=== PATIENT | male | born 1960 | race Caucasian/White ===

== ENCOUNTER 2019-11-13 07:13 | Inpatient (IN) | payer MEDICAID ==
[~2019-11-13] VITALS: Ht 170.2 cm; Wt 75.2 kg
[2019-11-13] MEDS ORDERED: ACETAMINOPHEN/CODEINE#3 (300/30mg) TAB PO ONE (08:00)
[2019-11-13 09:41] LABS: Basophils # (auto) 0.1 uL; Basophils % (auto) 1.4 % (0.0-2.0); Eosinophils # (auto) 0.1 uL; Eosinophils % (auto) 0.8 % (0.0-7.0); Hematocrit 41.6 % (41.0-53.0); Hemoglobin 14.7 g/dL (13.5-17.5); Lymphocytes # (auto) 0.9 uL; Lymphocytes % (auto) 14.4 % (10.0-50.0); Mean Corpuscular Hemoglobin 33.4 pg (28.0-32.0); Mean Corpuscular Hgb Conc. 35.2 g/dL (32.0-36.0); Mean Corpuscular Volume 94.8 fL (80.0-100.0); Monocytes # (auto) 0.7 uL; Neutrophils # (auto) 4.7 uL; Neutrophils % (auto) 72.4 % (37.0-80.0); Nucleated Red Blood Cells % 0.1 %; Platelet Count (auto) 202 10^3/uL (140-450); Red Blood Cells 4.39 10^6/uL (4.5-5.90); Red Cell Distribution Width 13.4 % (11.8-14.3); White Blood Cell 6.5 10^3/uL (4.4-10.8)
[2019-11-13 10:04] LABS: Albumin 3.6 g/dL (3.4-5.0); Calcium 8.3 mg/dL (8.5-10.1); Potassium 3.2 mmol/L (3.5-5.1)
[2019-11-13 10:09] LABS: BUN/Creatinine Ratio 10.7; Bilirubin, Total 0.6 mg/dL (0.2-1.0); Total Protein 7.3 g/dL (6.4-8.2)
[2019-11-13 11:03] LABS: INR > 8.0 (0.9-1.15)
[2019-11-13] MEDS ORDERED: PHYTONADIONE (VIT K)10 MG/ML 1ML VIAL SUBCUT ONE ×2 (11:15→22:00)
[2019-11-13] MEDS ORDERED: MORPHINE SULF INJ 2 MG/ML SYRINGE 1ML IV PRN (12:30)
[2019-11-13] MEDS ORDERED: POTASSIUM CHL 20 Meq TABLET PO ONE (12:30)
[2019-11-13] MEDS ORDERED: NITROGLYCERIN 0.4 MG SL TAB SL PRN (12:30)
[2019-11-13] MEDS: ONDANSETRON HCL 4 MG/2 ML VIAL IV PRN ×3 (13:09→23:07)
[2019-11-13] MEDS: HYDROmorphone HCL 2 MG/ML VL IV PRN ×2 (13:09→23:07)
[2019-11-13 16:15] VITALS: BP 142/120
[2019-11-13] MEDS ORDERED: HYDROmorphone HCL 2 MG/ML VL IV ONE (16:15)
[2019-11-13 16:33] VITALS: BP 171/78
[2019-11-13 17:00] VITALS: BP 174/58
[2019-11-13 18:00] VITALS: BP 167/80
--- NOTE | 2019-11-13 18:00 | NUR ---
Telemetry admit from GIRISH FARLEY admitted to Telemetry unit. Patient oriented to Tori Heath, primary RN, unit, room, bed, and unit policies regarding patient care and visiting hours. Patient now on continuous telemetry monitoring, tele box #44 and telemetry reading on arrival to unit is sinus rhythm @ 67 bpm. IV to right forearm, 20 gauge, patent and saline locked. Patient placed on bedside oxygen, weighed by bedscale and encouraged to call if they need something. Medial scalp scab, open to air. All questions and concerns addressed, patient verbalized understanding.
[2019-11-13 19:19] LABS: Basophils # (auto) 0 uL; Basophils % (auto) 0.4 % (0.0-2.0); Eosinophils # (auto) 0 uL; Eosinophils % (auto) 0.4 % (0.0-7.0); Hematocrit 36.6 % (41.0-53.0); Hemoglobin 12.7 g/dL (13.5-17.5); Lymphocytes # (auto) 0.4 uL; Lymphocytes % (auto) 6.1 % (10.0-50.0); Mean Corpuscular Hemoglobin 33.4 pg (28.0-32.0); Mean Corpuscular Hgb Conc. 34.7 g/dL (32.0-36.0); Mean Corpuscular Volume 96.2 fL (80.0-100.0); Monocytes # (auto) 0.7 uL; Monocytes % (auto) 9.7 % (0.0-12.0); Neutrophils # (auto) 5.6 uL; Neutrophils % (auto) 83.4 % (37.0-80.0); Nucleated Red Blood Cells % 0.1 %; Platelet Count (auto) 183 10^3/uL (140-450); Red Blood Cells 3.81 10^6/uL (4.5-5.90); Red Cell Distribution Width 13.6 % (11.8-14.3); White Blood Cell 6.8 10^3/uL (4.4-10.8)
--- NOTE | 2019-11-13 19:26 | NUR ---
Care endorsed to MASHA Arroyo, night nurse.
[2019-11-13 19:32] LABS: INR 3.26 (0.9-1.15)
[2019-11-13] MEDS ORDERED: LABETALOL HCL 5 MG/ML 4ML SYRINGE IV PRN (20:00)
[2019-11-13 22:00] VITALS: BP 146/86
[2019-11-13] MEDS ORDERED: ATORVASTATIN 20 MG TAB PO SCH (22:00)
--- NOTE | 2019-11-13 23:46 | NUR ---
Patient admission: Coumadin toxicity Addendum: 11/13/19 at 2347 by JIMBO LONGO RN Amended: Links added.
[2019-11-14] VITALS (7 sets, daily range): BP systolic 115–179; BP diastolic 61–86
[2019-11-14] MEDS: HYDROmorphone HCL 2 MG/ML VL IV PRN ×2 (03:44→08:15)
[2019-11-14] MEDS: ONDANSETRON HCL 4 MG/2 ML VIAL IV PRN ×2 (03:45→08:14)
[2019-11-14 05:34] LABS: Basophils # (auto) 0.1 uL; Basophils % (auto) 0.8 % (0.0-2.0); Eosinophils # (auto) 0.1 uL; Eosinophils % (auto) 0.8 % (0.0-7.0); Hematocrit 35.4 % (41.0-53.0); Hemoglobin 12.4 g/dL (13.5-17.5); Lymphocytes # (auto) 0.8 uL; Lymphocytes % (auto) 10.6 % (10.0-50.0); Mean Corpuscular Hemoglobin 33.7 pg (28.0-32.0); Mean Corpuscular Hgb Conc. 35.2 g/dL (32.0-36.0); Mean Corpuscular Volume 95.7 fL (80.0-100.0); Monocytes # (auto) 0.9 uL; Monocytes % (auto) 12.4 % (0.0-12.0); Neutrophils # (auto) 5.5 uL; Neutrophils % (auto) 75.4 % (37.0-80.0); Platelet Count (auto) 191 10^3/uL (140-450); Red Cell Distribution Width 13.5 % (11.8-14.3); White Blood Cell 7.2 10^3/uL (4.4-10.8)
[2019-11-14 05:36] LABS: INR 1.84 (0.9-1.15); Partial Thromboplastin Time 34.9 sec (23.64-32.05)
[2019-11-14 05:50] LABS: Albumin 3.4 g/dL (3.4-5.0); Potassium 3.5 mmol/L (3.5-5.1)
[2019-11-14 05:54] LABS: BUN/Creatinine Ratio 10.6; Total Protein 6.9 g/dL (6.4-8.2)
[2019-11-14] MEDS: AMIODARONE HCL 200 MG TAB PO SCH (10:20)
[2019-11-14] MEDS: PANTOPRAZOLE 40 MG TAB PO SCH (10:20)
[2019-11-14] MEDS ORDERED: HYDROmorphone HCL 2 MG/ML VL IV PRN ×3 (10:30→17:30)
[2019-11-14] MEDS ORDERED: LABETALOL HCL 5 MG/ML 4ML SYRINGE IV PRN (10:30)
[2019-11-14] MEDS: SODIUM CHLORIDE 0.9% 1,000 ML IV SCH ×2 (10:55→21:35)
[2019-11-14 11:07] LABS: Urine WBC None Seen /hpf (0 - 3)
[2019-11-14 11:28] LABS: Urine Bacteria NONE SEEN /hpf (None Seen); Urine Blood Negative /uL (Negative); Urine Mucus FEW (None Seen); Urine Specific Gravity 1.024 (1.001-1.035)
[2019-11-14] MEDS ORDERED: fentaNYL CITRATE 100 MCG/2 ML VL IV ONE ×2 (14:45→15:00)
--- NOTE | 2019-11-14 14:45 | NUR ---
LEFT THIGH DRAINAGE UNDER ULTRASOUND PT ARRIVED VIS W/C AND PLACED ON U.S. TABLE AND ATTCHED TO BEDSIDE MONITORS.
--- NOTE | 2019-11-14 15:36 | NUR ---
LEFT THIGH DRAINAGE UNDER ULTRASOUND. APPROXIMATELY 25CC OF BLODDY DRAINAGE RETURNED FROM THE LEFT THIGH HEMATOMA. PT TOLERATED PROCEDURE VERY WELL. REPORT GIVEN TO PATIENT CARE NURSE.
--- NOTE | 2019-11-14 17:11 | NUR ---
Procedure/Off unit Patient was taken down in bed for procedure/surgery.
[2019-11-14] MEDS ORDERED: ONDANSETRON HCL 4 MG/2 ML VIAL IV PRN (17:30)
[2019-11-14] MEDS ORDERED: NALOXONE HCL 0.4 MG/ML VIAL IV PRN (17:30)
[2019-11-14] MEDS ORDERED: hydrALAZINE HCL 20 MG/ML VL IV PRN (17:30)
[2019-11-14] MEDS ORDERED: METOCLOPRAMIDE HCL 5MG/ml INJ 2ml VIAL ONE (17:34)
[2019-11-14] MEDS ORDERED: MIDAZOLAM HCL 1MG/1ML-2 ML VIAL ONE (17:34)
[2019-11-14] MEDS ORDERED: LIDOCAINE 1% (LOCAL ANESTH.) PF 5ml SDV ONE (17:37)
[2019-11-14] MEDS ORDERED: ETOMIDATE (2MG/ML) 20ML VIAL IV ONE (17:37)
[2019-11-14] MEDS ORDERED: LIDOCAINE W/ EPINEPHRINE 1% 20ML VIAL ONE (17:41)
[2019-11-14] MEDS ORDERED: fentaNYL CITRATE 100 MCG/2 ML VL ONE (17:43)
[2019-11-14] MEDS ORDERED: ceFAZolin 1GM VL ONE (17:48)
[2019-11-14] MEDS ORDERED: BUPIVACAINE/DEXTROSE MPF 0.75% 2 ML AMP IT ONE (17:48)
[2019-11-14] MEDS ORDERED: STERILE WATER 10 ML ONE (17:52)
[2019-11-14] MEDS ORDERED: ePHEDrine SULFATE 50 MG/ML AMP ONE (17:52)
[2019-11-14] MEDS ORDERED: ROCURONIUM 10MG/ML 10ML VIAL IV ONE (18:04)
--- NOTE | 2019-11-14 20:00 | NUR ---
Opening Shift Note Assumed care of patient, awake and alert x4. No S/S of distress/SOB on room air. Denies pain at this time. Instructed on POC and to call for assist PRN, will continue to monitor for changes Q1hr and PRN.
--- NOTE | 2019-11-14 21:33 | NUR ---
IV removal IV DC'd with clean sterile technique, catheter fully intact. Pressure dressing applied to site. Patient tolerated well. IV insertion IV access obtained, via clean sterile technique by inserting 20 gauge catheter at left FA after 1 attempts. IV secured properly. No trauma to site. Patient tolerated well.
[2019-11-14] MEDS: ceFAZolin 1GM/50ML 50 ML IV SCH (21:36)
[2019-11-15] MEDS: HYDROcodone-ACET 5/325MG TAB PO PRN ×3 (02:27→18:57)
[2019-11-15 05:00] VITALS: BP 149/78
[2019-11-15] MEDS: ceFAZolin 1GM/50ML 50 ML IV SCH ×2 (05:46→14:53)
[2019-11-15 05:50] LABS: Basophils # (auto) 0.1 uL; Eosinophils # (auto) 0.3 uL; Hematocrit 31.4 % (41.0-53.0); Hemoglobin 11.1 g/dL (13.5-17.5); Mean Corpuscular Hgb Conc. 35.4 g/dL (32.0-36.0); Monocytes # (auto) 0.8 uL; Neutrophils # (auto) 4.1 uL
[2019-11-15 05:52] LABS: Basophils % (auto) 1.1 % (0.0-2.0); Lymphocytes # (auto) 1.1 uL; Lymphocytes % (auto) 17.5 % (10.0-50.0); Mean Corpuscular Hemoglobin 33.9 pg (28.0-32.0); Mean Corpuscular Volume 95.8 fL (80.0-100.0); Monocytes % (auto) 13.4 % (0.0-12.0); Platelet Count (auto) 176 10^3/uL (140-450); Red Blood Cells 3.28 10^6/uL (4.5-5.90); Red Cell Distribution Width 13.2 % (11.8-14.3); White Blood Cell 6.3 10^3/uL (4.4-10.8)
[2019-11-15 06:11] LABS: Potassium 3.5 mmol/L (3.5-5.1)
[2019-11-15 06:26] LABS: BUN/Creatinine Ratio 11.1
[2019-11-15] MEDS: SODIUM CHLORIDE 0.9% 1,000 ML IV SCH ×2 (07:56→16:26)
[2019-11-15 09:00] VITALS: BP 136/66
[2019-11-15] MEDS: AMIODARONE HCL 200 MG TAB PO SCH (09:27)
[2019-11-15] MEDS: PANTOPRAZOLE 40 MG TAB PO SCH (09:28)
[2019-11-15 11:55] LABS: Hepatitis A Ab IgM Negative; Hepatitis B Core IgM Negative; Hepatitis B Surface Antigen Negative (Negative)
[2019-11-15 11:58] LABS: Hepatitis C Antibody Positive (Negative)
[2019-11-15] MEDS: HEPARIN DRIP/D5W 100UNITS/ML 250 ML IV SCH (12:34)
--- NOTE | 2019-11-15 12:40 | NUR ---
Heparin Patient was started on Heparin drip running at 9 mL/hour per pharmacy. He was informed to notify the nurse if any bleeding is noted or large bruises. Will monitor patient closely.
[2019-11-15 13:00] VITALS: BP 135/64
[2019-11-15] MEDS ORDERED: SUCCINYLCHOLINE CHLORIDE 20 MG/ML 10ML VIAL IV ONE (13:39)
[2019-11-15 17:00] VITALS: BP 156/71
[2019-11-15 18:34] LABS: INR 1.04 (0.9-1.15); Partial Thromboplastin Time 28.5 sec (23.64-32.05)
--- NOTE | 2019-11-15 18:55 | NUR ---
Heparin change APTT was 28.5. Heparin was increased by 3. Changed from 9 mL/hour to 12 mL/hour. No sign of bleeding at this time.
--- NOTE | 2019-11-15 19:20 | NUR ---
OPENING NOTE ASSUMED CARE OF PT. NO S/S OF SOB/DISTRESS NOTED. DENIES ANY PAIN. SAFETY PRECAUTIONS IN PLACE. BED SET TO LOWEST POSITION/LOCKED. BEDSIDE RAILS UP X2. CALL LIGHT WITHIN REACH. INSTRUCTED PATIENT TO CALL FOR ASSISTANCE. UPDATE ON POC. PT VERBALIZED UNDERSTANDING. WILL CONTINUE TO MONITOR Q1HR AND PRN.
[2019-11-15 20:13] LABS: Urine Bacteria NONE SEEN /hpf (None Seen); Urine Blood Negative /uL (Negative); Urine Mucus FEW (None Seen); Urine Specific Gravity 1.029 (1.001-1.035); Urine WBC 1 /hpf (0 - 3)
--- NOTE | 2019-11-15 20:20 | NUR ---
URINE URINE SAMPLE COLLECTED AND SENT TO LAB.
[2019-11-15 20:28] LABS: Alcohol, Urine < 3.0 mg/dL (0-5); Amphetamine Screen, Urine NEGATIVE (NEGATIVE); Barbiturate Scree,Urine NEGATIVE (NEGATIVE); Benzodiazephine Screen, Urine POSITIVE (NEGATIVE); Cannabinoid Screen, Urine POSITIVE (NEGATIVE); Cocaine Screen, Urine NEGATIVE (NEGATIVE); Opiate Scree,Urine POSITIVE (NEGATIVE); Phencyclidine Screen, Urine NEGATIVE (NEGATIVE)
[2019-11-15 22:00] VITALS: BP 136/66
[2019-11-16] MEDS: HYDROcodone-ACET 5/325MG TAB PO PRN ×5 (00:54→23:20)
[2019-11-16 01:29] LABS: INR 1.04 (0.9-1.15)
--- NOTE | 2019-11-16 01:41 | NUR ---
HEPARIN APTT 41.0, HEPARIN INCREASED BY 2ML PER PROTOCOL. NEW RATE 14ML/HR. NO SIGNS OF BLEEDING.
[2019-11-16] MEDS: SODIUM CHLORIDE 0.9% 1,000 ML IV SCH ×3 (02:17→20:09)
--- NOTE | 2019-11-16 03:10 | NUR ---
OPENING SHIFT NOTE Assumed care of patient from cook night RN. Patient is alert and oriented x4, no signs of distress noted. Patient was updated on the plan of care and verbalized understanding. Bed is locked, in the lowest position, side rails up x2 and call light is in reach. Patient was encouraged to call for assistance as needed.
[2019-11-16 05:00] VITALS: BP 136/71
[2019-11-16 06:00] LABS: Basophils # (auto) 0.1 uL; Basophils % (auto) 1.3 % (0.0-2.0); Eosinophils # (auto) 0.3 uL; Hematocrit 27.9 % (41.0-53.0); Lymphocytes # (auto) 0.8 uL; Mean Corpuscular Hgb Conc. 35.9 g/dL (32.0-36.0); Monocytes # (auto) 0.6 uL; Platelet Count (auto) 163 10^3/uL (140-450); Red Blood Cells 2.89 10^6/uL (4.5-5.90); White Blood Cell 4.6 10^3/uL (4.4-10.8)
[2019-11-16 06:03] LABS: Eosinophils % (auto) 6.7 % (0.0-7.0); Lymphocytes % (auto) 17.6 % (10.0-50.0); Mean Corpuscular Hemoglobin 34.6 pg (28.0-32.0); Mean Corpuscular Volume 96.5 fL (80.0-100.0); Neutrophils # (auto) 2.7 uL; Neutrophils % (auto) 60.4 % (37.0-80.0); Red Cell Distribution Width 13.3 % (11.8-14.3)
[2019-11-16 06:21] LABS: Calcium 7.9 mg/dL (8.5-10.1); Potassium 3.5 mmol/L (3.5-5.1)
[2019-11-16 06:25] LABS: BUN/Creatinine Ratio 16.2
[2019-11-16 06:31] LABS: INR 1.02 (0.9-1.15); Partial Thromboplastin Time 47.1 sec (23.64-32.05)
--- NOTE | 2019-11-16 06:54 | NUR ---
HEPARIN APTT 47.1, HEPARIN INCREASED BY 2ML PER PROTOCOL. NEW RATE 16ML/HR. NO SIGNS OF BLEEDING.
--- NOTE | 2019-11-16 07:03 | NUR ---
CLOSING SHIFT NOTE Care endorsed to MASHA Ceja.
--- NOTE | 2019-11-16 07:30 | NUR ---
Opening Shift Note Assumed care of patient, awake and alert x 4. Patient reported discomfort from incision but no SOB or other distress noted. Bed is in lowest, locked position, bed rails up x 2 and call light within reach. Instructed on POC and to call for assist PRN, will continue to monitor for changes Q1hr and PRN. Signed: 11/16/19 at 1301 by SN DESTINY <Co-Signature Required> Co-Signed: 11/16/19 at 1301 by Brenna Dela Cruz RN RN
[2019-11-16 09:00] VITALS: BP 143/73
[2019-11-16] MEDS: PANTOPRAZOLE 40 MG TAB PO SCH (09:48)
[2019-11-16] MEDS: AMIODARONE HCL 200 MG TAB PO SCH (09:48)
[2019-11-16 12:30] VITALS: BP 135/69
--- NOTE | 2019-11-16 13:05 | NUR ---
DR WILLAMS AT BEDSIDE DISCUSSED POC AND PAIN MANAGEMENT WITH PATIENT Signed: 11/16/19 at 1309 by SN DESTINY <Co-Signature Required> Co-Signed: 11/16/19 at 1309 by Brenna Dela Cruz RN RN
[2019-11-16 14:00] LABS: INR 1.01 (0.9-1.15); Partial Thromboplastin Time 57.9 sec (23.64-32.05)
[2019-11-16] MEDS: HEPARIN DRIP/D5W 100UNITS/ML 250 ML IV SCH (14:12)
--- NOTE | 2019-11-16 15:12 | NUR ---
assessment Patient is a 59 year old male who is alert and oriented. Patients cognitive abilities are intact. Prior to admission patient lived home with family and functioned independently. Patient informed me he is able to care for his own ADLs. Per patient he will return home to his prior living arrangements post discharge and family will transport him home. Patients PCP is Dr Verdin. Patient informed me he was working in his yard building a fence and hit his leg with an ogger. Patient may need DME and home health on discharge. Patients post discharge needs to be determined. I informed patient he has a right to speak to a social science teacher regarding all care. I informed patient he has a right to participate in any and all discharge planning. Patient does not have a POA and advanced directive. I have offered patient information on POA and advanced directives. I informed the patient the advantages and benefits of having an Advanced Directive. Patient verbalized understanding and agreed to discharge plan. Addendum: 11/16/19 at 1513 by Bree KAUR Amended: Links added.
[2019-11-16] MEDS ORDERED: WARFARIN SODIUM 5 MG TAB PO ONE (17:00)
[2019-11-16 17:15] VITALS: BP 137/74
--- NOTE | 2019-11-16 19:19 | NUR ---
CLOSING SHIFT NOTE ENDORSED CARE TO RESTAURANT ASSISTANT MANAGER MASHA JUAREZ. PATIENT HAS NO S/S OF DISTRESS/SOB OR PAIN AT THIS TIME.
--- NOTE | 2019-11-16 19:30 | NUR ---
Opening Shift Note Assumed care of patient, awake and alert x 4. Patient reported discomfort from incision but no SOB or other distress noted. Bed is in lowest, locked position, bed rails up x 2 and call light within reach. Instructed on POC and to call for assist PRN. Heparin drip currently running at 16 ml/hour.
[2019-11-16 21:53] VITALS: BP 120/63
[2019-11-17] VITALS (7 sets, daily range): BP systolic 129–150; BP diastolic 66–81
[2019-11-17 01:20] LABS: Partial Thromboplastin Time 84.8 sec (23.64-32.05)
--- NOTE | 2019-11-17 01:21 | NUR ---
Critical lab: Patient had a critical lab value of 84.8 aptt. According to Heparin protocol scale will decrease heparin drip by 2 ml/hr. Verified with MASHA Choudhury.
--- NOTE | 2019-11-17 01:24 | NUR ---
Heparin: Patient now running 14 ml/hr heparin drip per protocol scale. Patient is resting in bed with breaths even and unlabored. No S/S of distress SOB noted.
[2019-11-17] MEDS: HYDROcodone-ACET 5/325MG TAB PO PRN ×3 (05:53→21:08)
[2019-11-17 06:50] LABS: Basophils # (auto) 0 uL; Basophils % (auto) 1.3 % (0.0-2.0); Eosinophils # (auto) 0.3 uL; Mean Corpuscular Volume 96.4 fL (80.0-100.0); Monocytes # (auto) 0.5 uL; Neutrophils # (auto) 2.1 uL; Nucleated Red Blood Cells % 0.2 %
[2019-11-17 06:52] LABS: Hematocrit 27.2 % (41.0-53.0); Hemoglobin 9.7 g/dL (13.5-17.5); Lymphocytes # (auto) 0.6 uL; Lymphocytes % (auto) 17.7 % (10.0-50.0); Mean Corpuscular Hemoglobin 34.3 pg (28.0-32.0); Mean Corpuscular Hgb Conc. 35.6 g/dL (32.0-36.0); Monocytes % (auto) 14.6 % (0.0-12.0); Neutrophils % (auto) 58.4 % (37.0-80.0); Platelet Count (auto) 207 10^3/uL (140-450); Red Blood Cells 2.83 10^6/uL (4.5-5.90); Red Cell Distribution Width 13.2 % (11.8-14.3); White Blood Cell 3.6 10^3/uL (4.4-10.8)
--- NOTE | 2019-11-17 06:57 | NUR ---
Called Lab regarding need for APTT: Called lab regarding APTT need for lab. Placed Pt/PTT for protocol stat. Lab aware and to include aptt.
[2019-11-17] MEDS: HEPARIN DRIP/D5W 100UNITS/ML 250 ML IV SCH (07:32)
[2019-11-17] MEDS: SODIUM CHLORIDE 0.9% 1,000 ML IV SCH ×2 (08:30→14:20)
[2019-11-17] MEDS: AMIODARONE HCL 200 MG TAB PO SCH (10:48)
[2019-11-17] MEDS: PANTOPRAZOLE 40 MG TAB PO SCH (10:48)
[2019-11-17 13:20] LABS: INR 1.01 (0.9-1.15); Partial Thromboplastin Time 55.2 sec (23.64-32.05)
--- NOTE | 2019-11-17 14:03 | NUR ---
PTT PTT IS 55.2 NO CHANGE TO HEPARIN DRIP
--- NOTE | 2019-11-17 15:00 | NUR ---
CALLED MD WINTERS. INFORMED MD, PATIENT HAS HAD A BRUISE ON THE LEFT UPPER INNER THIGH AND IT IS NOW BIGGER FROM THIS MORNING. MD ORDERED HEPARIN AND COUMADIN TO BE STOPPED AND TO ORDER A STAT LEG ULTRA SOUND. WILL FOLLOW THROUGH WITH ORDERS.
--- NOTE | 2019-11-17 15:30 | NUR ---
LEFT MESSAGE FOR ULTRA SOUND REGARDING STAT ORDER.
--- NOTE | 2019-11-17 17:23 | NUR ---
OPENING SHIFT NOTE ASSUMED CARE OF PATIENT FROM ASSISTANT PROFESSOR OF MARINE BIOLOGY MASHA JUAREZ. PATIENT IS AWAKE, ALERT AND ORIENTED X4. PATIENT HAS NO S/S OF DISTRESS/SOB OR PAIN. INSTRUCTED PATIENT ON POC, PATIENT VERBALIZED UNDERSTANDING. BED IS IN LOWEST POSITION WITH SIDE RAILS RAISED X2, BED WHEELS LOCKED, AND CALL LIGHT IS WITHIN REACH. WILL CONTINUE TO MONITOR. Addendum: 11/17/19 at 172 by Brenna Dela Cruz RN RN TIME 0700 NOT 1723
--- NOTE | 2019-11-17 19:36 | NUR ---
CLOSING SHIFT NOTE ENDORSED CARE TO DAM OPERATOR MASHA SOSA. PATIENT HAS NO S/S OF DISTRESS/SOB OR PAIN AT THIS TIME.
--- NOTE | 2019-11-17 19:36 | NUR ---
INFORMED NOC SHIFT MASHA SOSA TO [employer] CONSULTANT HOSPITALIST AND INFORM THEM OF ULTRASOUND RESULTS TO SEE IF THEY WANT TO CONTINUE WARFARIN OR HEPARIN, RN VERBALIZED UNDERSTANDING
--- NOTE | 2019-11-17 19:40 | NUR ---
Opening Shift Note Assumed care of patient, awake and alert. No S/S of distress/SOB or pain. Instructed on POC and to call for assist PRN, will continue to monitor for changes Q1hr and PRN.
--- NOTE | 2019-11-17 22:20 | NUR ---
Per hospitalist doctor Ada pt will be not put back on heparin or coumadin tonight. He stated the doctors in the am will do that because they know the patient.
[2019-11-18] MEDS: HYDROcodone-ACET 5/325MG TAB PO PRN ×2 (04:01→10:02)
[2019-11-18] MEDS: SODIUM CHLORIDE 0.9% 1,000 ML IV SCH ×2 (04:30→14:30)
[2019-11-18 04:55] VITALS: BP 148/82
[2019-11-18 06:09] LABS: Eosinophils # (auto) 0.3 uL; Hemoglobin 9.6 g/dL (13.5-17.5); Lymphocytes # (auto) 0.6 uL; Monocytes # (auto) 0.5 uL; Neutrophils # (auto) 1.9 uL; Nucleated Red Blood Cells % 0.2 %; Red Cell Distribution Width 13.5 % (11.8-14.3); White Blood Cell 3.4 10^3/uL (4.4-10.8)
[2019-11-18 06:12] LABS: Basophils # (auto) 0 uL; Basophils % (auto) 1.4 % (0.0-2.0); Eosinophils % (auto) 7.9 % (0.0-7.0); Hematocrit 27.1 % (41.0-53.0); Lymphocytes % (auto) 18.3 % (10.0-50.0); Mean Corpuscular Hemoglobin 34.5 pg (28.0-32.0); Mean Corpuscular Hgb Conc. 35.5 g/dL (32.0-36.0); Mean Corpuscular Volume 97.1 fL (80.0-100.0); Monocytes % (auto) 15.4 % (0.0-12.0); Platelet Count (auto) 244 10^3/uL (140-450); Red Blood Cells 2.79 10^6/uL (4.5-5.90)
[2019-11-18 06:20] LABS: Potassium 3.4 mmol/L (3.5-5.1)
[2019-11-18 06:33] LABS: INR 0.97 (0.9-1.15); Partial Thromboplastin Time 26.8 sec (23.64-32.05)
[2019-11-18 06:40] LABS: Albumin 2.5 g/dL (3.4-5.0); BUN/Creatinine Ratio 11.8; Bilirubin, Total 1.1 mg/dL (0.2-1.0); Calcium 7.6 mg/dL (8.5-10.1); Magnesium 2.2 mg/dL (1.6-2.6); Total Protein 5.8 g/dL (6.4-8.2)
--- NOTE | 2019-11-18 07:10 | NUR ---
OPENING SHIFT NOTE ASSUMED CARE OF PATIENT FROM HIGH SCHOOL BAND TEACHER RN IAN. PATIENT IS AWAKE, ALERT AND ORIENTED X4. PATIENT HAS NO S/S OF DISTRESS/SOB OR PAIN. INSTRUCTED PATIENT ON POC, PATIENT VERBALIZED UNDERSTANDING. BED IS IN LOWEST POSITION WITH SIDE RAILS RAISED X2, BED WHEELS LOCKED, AND CALL LIGHT IS WITHIN REACH. WILL CONTINUE TO MONITOR.
[2019-11-18 08:15] VITALS: BP 145/79
[2019-11-18 09:00] VITALS: BP 145/79
--- NOTE | 2019-11-18 10:00 | NUR ---
SPOKE WITH DR. WINTERS INFORMED HIM OF PATIENT'S ULTRASOUND RESULTS OF LEFT LEG, MD IS AWARE AND DOES NOT WANT TO CONTINUE HEPARIN AT THIS TIME.
[2019-11-18] MEDS: AMIODARONE HCL 200 MG TAB PO SCH (10:02)
[2019-11-18] MEDS: PANTOPRAZOLE 40 MG TAB PO SCH (10:02)
--- NOTE | 2019-11-18 12:00 | NUR ---
SPOKE WITH MD WILLAMS. IS CONCERNED ABOUT PATIENT NOT BEING ON HEPARIN. INFORMED HIM MD WINTERS DISCONTINUED HEPARIN AND COUMADIN YESTERDAY DUE TO WORSENING ECCHYMOSIS TO LEFT MEDIAL THIGH. INFORMED MD WILLAMS OF ULTRASOUND RESULTS. MD WILLAMS WILL SPEAK WITH DR. WINTERS REGARDING HEPARIN DRIP.
--- NOTE | 2019-11-18 12:20 | NUR ---
PATIENT STATES HE WANTS TO LEAVE AMA AND PULLED OUT HIS LEFT UPPER ARM IV. INFORMED MD WILLAMS. MD WILLAMS SPOKE WITH PATIENT AND INFORMED OF RISKS OF LEAVING AGAINST MEDICAL ADVICE, PATIENT VERBALIZED UNDERSTANDING AND STILL WANTS TO LEAVE. PAGED DR. WINTERS
--- NOTE | 2019-11-18 12:30 | NUR ---
DR. WINTERS AT NURSES DISCUSSING POC WITH DR. WILLAMS. DR. WINTERS IS SPEAKING WITH PATIENT REGARDING AMA AND INFORMED HIM OF RISKS. PATIENT STATES HE WILL STAY UNTIL 1700 AND THEN HE IS LEAVING. MD WINTERS ORDERED HEPARIN TO BE RESTARTED AND COUMADIN TO BE GIVEN ONE TIME. WILL FOLLOW THROUGH WITH ORDERS.
[2019-11-18] MEDS ORDERED: HEPARIN DRIP/D5W 100UNITS/ML 250 ML IV SCH ×2 (12:38→13:06)
[2019-11-18] MEDS ORDERED: WARFARIN SODIUM 5 MG TAB PO ONE (12:45)
[2019-11-18] MEDS ORDERED: HEPARIN SODIUM (PORCINE) 5000 UNITS/ML 1ML VIAL IV ONE (12:45)
[2019-11-18 13:00] VITALS: BP_SYST 113; BP_SYST 147; BP_DIAS 58; BP_DIAS 68
[2019-11-18 13:25] LABS: Basophils # (auto) 0.1 uL; Eosinophils # (auto) 0.2 uL; Hemoglobin 10.5 g/dL (13.5-17.5); Lymphocytes # (auto) 0.6 uL; Monocytes # (auto) 0.6 uL; Neutrophils # (auto) 3.1 uL
[2019-11-18 13:27] LABS: Basophils % (auto) 1.5 % (0.0-2.0); Eosinophils % (auto) 3.5 % (0.0-7.0); Hematocrit 29.9 % (41.0-53.0); Mean Corpuscular Hemoglobin 34.4 pg (28.0-32.0); Mean Corpuscular Hgb Conc. 35.1 g/dL (32.0-36.0); Mean Corpuscular Volume 97.9 fL (80.0-100.0); Monocytes % (auto) 12.8 % (0.0-12.0); Neutrophils % (auto) 69.2 % (37.0-80.0); Platelet Count (auto) 272 10^3/uL (140-450); Red Blood Cells 3.05 10^6/uL (4.5-5.90); Red Cell Distribution Width 13.7 % (11.8-14.3); White Blood Cell 4.4 10^3/uL (4.4-10.8)
[2019-11-18 13:45] LABS: INR 0.96 (0.9-1.15); Partial Thromboplastin Time 24.8 sec (23.64-32.05)
--- NOTE | 2019-11-18 14:45 | NUR ---
CALLED PHARMACY FOR HEPARIN. THEY WILL SEND IT UP.
[2019-11-18 16:39] LABS: INR 1.05 (0.9-1.15)
--- NOTE | 2019-11-18 17:05 | NUR ---
AMA Note GIRISH SINGLETON states they want to leave the hospital Against Medical Advice (AMA). Patient encouraged to stay for further treatment/stabilization. WILLY TORRES notified of patient's wishes. Patient advised of the risks and benefits of leaving AMA. Patient verbalized understanding. Patient encouraged to return to the ER if symptoms do not improve or worsen.
[2019-11-18 17:13] LABS: Partial Thromboplastin Time 72.9 sec (23.64-32.05)
[2019-11-18] MEDS ORDERED: NEUTRA-PHOS TABLET PO SCH (18:00)
== END 2019-11-18 17:10 | disposition left against medical advice (07) | DRG 317 ==
LOC: ER 07:13 → EDBD 07:13 → TELE 07:14 → TELE-CENTR 17:53 → CENTRAL 11-16 11:29
PROVIDERS: ADMIT Nurse Practitioner Acute Care; ATTEND Internal Medicine
PROC: 30233K1 Transfusion of Nonautologous Frozen Plasma into Peripheral Vein, Percutaneous Approach (ICD-10-PCS; 2019-11-13)
PROC: 0KCR0ZZ Extirpation of Matter from Left Upper Leg Muscle, Open Approach (ICD-10-PCS; principal; 2019-11-15)
PROC: 0KNR0ZZ Release Left Upper Leg Muscle, Open Approach (ICD-10-PCS; 2019-11-15)
DX: T79.A22A Traumatic compartment syndrome of left lower extremity, initial encounter (principal); B19.20 Unspecified viral hepatitis C without hepatic coma; F17.210 Nicotine dependence, cigarettes, uncomplicated; E78.5 Hyperlipidemia, unspecified; D50.0 Iron deficiency anemia secondary to blood loss (chronic); S70.12XA Contusion of left thigh, initial encounter; R79.1 Abnormal coagulation profile; T45.515A Adverse effect of anticoagulants, initial encounter; I10 Essential (primary) hypertension; I73.9 Peripheral vascular disease, unspecified; W20.8XXA Other cause of strike by thrown, projected or falling object, initial encounter; Y93.89 Activity, other specified; Y92.89 Other specified places as the place of occurrence of the external cause; Y99.8 Other external cause status; Z79.01 Long term (current) use of anticoagulants
CPT/HCPCS: 10022; 36415; 36430; 71045; 73700; 76942; 80048; 80053; 80061; 80074; 80307; 81001; 82550; 83735; 84100; 85025; 85045; 85610; 85730; 86850; 86900; 86901; 93306; 93926; 96372; 96374; A4223; G0378; J0330; J0690; J2250; J2405; J3430; J3490

== ENCOUNTER 2023-11-17 12:27 | Emergency (ER) | payer MEDICAID ==
[~2023-11-17] VITALS: Ht 170.2 cm; Wt 77.2 kg
[~2023-11-17 12:27] MED LIST: AMIO200T33 PO; AML5T PO; ATOR20TA50 PO; CHOL20007 OR; DIGO0.12 PO; LOSA50TA46 PO; OME20GT PO; WARF-66 PO
[2023-11-17] MEDS ORDERED: BACIOIN15 TOP (15:07)
[2023-11-17] MEDS ORDERED: AUG875T PO (15:07)
[2023-11-17] MEDS ORDERED: ACE3T PO (15:07)
[2023-11-17] MEDS: LIDOCAINE 1% HCL (LOCAL ANESTH.) INJ 20ML MDV ID ONE (15:53)
[2023-11-17] MEDS: HYDROcodone-ACET 10/325MG TAB PO ONE (16:00)
[2023-11-17 16:01] VITALS: BP 142/89; PULSE 98; RESP 17; TEMP 98.7; O2SAT 99
== END 2023-11-17 16:05 | disposition home or self-care (01) ==
LOC: EDBD 12:27 → ER 12:27
DX: S61.412A Laceration without foreign body of left hand, initial encounter (principal); S61.411A Laceration without foreign body of right hand, initial encounter; S61.452A Open bite of left hand, initial encounter; S61.451A Open bite of right hand, initial encounter; I10 Essential (primary) hypertension; I25.10 Atherosclerotic heart disease of native coronary artery without angina pectoris; F17.210 Nicotine dependence, cigarettes, uncomplicated; Z95.1 Presence of aortocoronary bypass graft; Z79.899 Other long term (current) drug therapy; W54.0XXA Bitten by dog, initial encounter; Y93.89 Activity, other specified; Y92.89 Other specified places as the place of occurrence of the external cause; Y99.8 Other external cause status
CPT/HCPCS: 12002; 99283; J2001

== ENCOUNTER 2025-04-05 19:54 | Emergency (ER) | payer MEDICAID, OTHER ==
[~2025-04-05] VITALS: Ht 170.2 cm; Wt 71.1 kg
[~2025-04-05 19:54] MED LIST changes: +ACE3T PO; +AUG875T PO; +BACIOIN15 TOP; +LOSA-534 PO; -LOSA50TA46 PO
[2025-04-05 20:00] VITALS: BP 147/79; PULSE 94; RESP 18; TEMP 98; O2SAT 96
[2025-04-05] MEDS: ACETAMINOPHEN 325 MG TAB PO ONE (20:26)
--- NOTE | 2025-04-05 20:27 | ED.PDOC ---
HPI Comments This is a 64 year old male presenting to the ED with chief complaint of wound to neck. Patient reports that he had been previously bitten by a bug to the right side of his neck, eventually needing an incision and drainage due to the bite forming an abscess. Patient relays that today, the wound started to bleed uncontrollably, needing 10 gauze changes by his . Patient states that he is on Coumadin due to having a prosthetic aortic valve. Patient denies any syncope, dizziness, N/V, chest pain, or SOB. Time Seen by MD: 20:19 Primary Care Provider: FARRAH Reviewed Notes: Nurses Notes, Medications, Allergies Allergies: Coded Allergies: NO KNOWN ALLERGIES (Unverified , 11/13/19) Home Meds Active Scripts Bacitracin Base (Bacitracin) 500 Unit/Gm Oin, 500 UNIT TOP DAILY, #30 GM Prov:ARSENIO FRANCES PAC 11/17/23 Acetaminophen W/ Codeine (Tylenol W/Cod #3) 1 Tab Tb, 1 TAB PO Q6HP PRN, #20 TAB Prov:ARSENIO FRANCES PAC 11/17/23 Amoxicillin & Pot Clavulanate (AUGMENTIN TABLET) 875 Mg Tb, 875 MG PO BID for 10 Days, #20 TAB Prov:ARSENIO FRANCES PAC 11/17/23 Reported Medications Omeprazole (Prilosec Susp (For Gt)) 20 Mg Ss, 20 MG PO DAILY, ML 03/12/21 Losartan Potassium (Losartan Potassium) 50 Mg Tab, 1 TAB PO DAILY, #30 TAB 5 Refills 03/12/21 Amiodarone Hcl (Amiodarone Hcl) 200 Mg Tab, 1 TAB PO DAILY, #90 TAB 1 Refill 03/12/21 Amlodipine Besylate (NORVASC TABLET) 5 Mg Tb, 1 TAB PO DAILY, #30 TAB 5 Refills 03/12/21 Warfarin Sodium (Warfarin Sodium) 5 Mg Tab, 1 TAB PO DAILY, #90 TAB 1 Refill 03/12/21 Atorvastatin Calcium (ATORVASTATIN CALCIUM) 20 Mg Tab, 1 TAB PO HS, #30 TAB 5 Refills 03/12/21 Cholecalciferol (VITAMIN D3) 2,000 Unit Tab, 5000 UNIT OR DAILY, TAB 03/12/21 Digoxin (Digoxin) 125 Mcg Tab, 125 MCG PO DAILY, TAB 03/12/21 Information Source: Patient, Spouse Mode of Arrival: Ambulatory Severity: Moderate Severity of Laceration: Uncontrolled Bleeding Complexity: Intermediate Timing: Hours Prehospital treatment: None Laceration Location: Neck Mechanism: Other (I and D) Last Tetanus: UTD Laceration Length (cm): 2 Skin Type: Linear Depth of Injury: SQ Tender: None Discharge: Bloody Erythema: None Associated Signs and Symptoms: Bleeding Past Medical History PAST MEDICAL HISTORY: CAD, HTN, [place] Surgical History: CABG Surgical History (Other): Artificial Aortic valve Family History Family History: Reviewed,noncontributory to illness Social History Smoker: Cigarettes Alcohol: Denies ETOH Use Drugs: Denies Drug Use Lives In: Home Constitutional: denies: chills, diaphoresis, fatigue, fever, malaise, sweats, weakness, others EENTM: denies: blurred vision, double vision, ear bleeding, ear discharge, ear drainage, ear pain, ear ringing, eye pain, eye redness, hearing loss, mouth pain, mouth swelling, nasal discharge, nose bleeding, nose congestion, nose pain, photophobia, tearing, throat pain, throat swelling, voice changes, others Respiratory: denies: cough, hemoptysis, orthopnea, SOB at rest, shortness of breath, SOB with excertion, stridor, wheezing, others Cardiovascular: denies: chest pain, dizzy spells, diaphoresis, Dyspnea on exertion, edema, irregular heart beat, left arm pain, lightheadedness, palpitations, PND, syncope, others Gastrointestinal: denies: abdomen distended, abdominal pain, blood streaked bowels, constipated, diarrhea, dysphagia, difficulty swallowing, hematemesis, melena, nausea, poor appetite, poor fluid intake, rectal bleeding, rectal pain, vomiting, others Genitourinary: denies: burning, dysuria, flank pain, frequency, hematuria, incontinence, penile discharge, penile sore, pain, testicle pain, testicle swelling, urgency, others Neurological: denies: dizziness, fainting, headache, left sided numbness, left sided weakness, numbness, paresthesia, pre-existing deficit, right sided numbness, right sided weakness, seizure, speech problems, tingling, tremors, weakness, others Musculoskeletal: denies: back pain, gout, joint pain, joint swelling, muscle pain, muscle stiffness, neck pain, others Integumetry: reports: wounds (To right neck); denies: bruises, change in color, change in hair/nails, dryness, laceration, lesions, lumps, rash, others Allergic/Immunocompromised: denies: Difficulty Healing, Frequent Infections, Hives, Itching, others Hematologic/Lymphatic: reports: easy bleeding; denies: anemia, blood clots, easy bruising, swollen glands, others Endocrine: denies: excessive hunger, excessive sweating, excessive thirst, excessive urination, flushing, intolerance to cold, intolerance to heat, unexplained weight gain, unexplained weight loss, others Psychiatric: denies: anxiety, bipolar disorder, depression, hopeless, panic di sorder, schizophrenia, sleepless, suicidal, others All Other Systems: Reviewed and Negative Physical Exam General Appearance: No Apparent Distress, Normal HEENT: Pharynx Normal, TMs Normal Neck: Full Range of Motion, Non-Tender, Normal, Normal Inspection, Other (right lateral neck with a fresh I/D wound, with no surrounding redness, no dischargee, but slow ooz of blood, no pulsatile mass) Respiratory: Chest Non-Tender, Lungs Clear, No Accessory Muscle Use, No Respiratory Distress, Normal Breath Sounds Cardiovascular: No Edema, No JVD, No Murmur, No Gallop, Normal Peripheral Pulses, Regular Rate/Rhythm Breast Exam: Deferred Gastrointestinal: No Organomegaly, Non Tender, No Pulsatile Mass, Normal Bowel Sounds, Soft Genitalia: Deferred Pelvic: Deferred Rectal: Deferred Extremities: No calf tenderness, Normal capillary refill, Normal inspection, Normal range of motion, Non-tender, No pedal edema Musculoskeletal : Apperance: Normal Neurologic: Alert, veterinarian poultry II-XII nml as Tested, No Motor Deficits, Normal Affect, Normal Mood, No Sensory Deficits Cerebellar Function: Normal Reflexes: Normal Skin: Dry, Normal Color, Warm Lymphatic: No Adenopathy Was a procedure done? Was a procedure done?: Yes Sedation Sedation?: No Informed consent obtained: Yes Laceration Repair : Length 4cm Anesthetic: Lidocaine Laceration Repair Wound Comple: epidermis/dermis repair Laceration Repair: Number of sutures (3), Skin, Size (4), Nylon, Running Informed consent obtained: Yes Risks, benefits, and alternati: Yes Differential diagnosis Generic Laceration: Hematoma, Laceration, Other (coagulopathy, anemia, vascular injury) X-Ray, Labs, Meds, VS Vital Signs Date Time Temp Pulse Resp B/P (MAP) Pulse Ox O2 Delivery O2 Flow Rate FiO2 04/05/25 20:00 98.0 94 18 147/79 (101) 96 98.0 Lab Test 04/05/25 20:30 Range/Units Hemoglobin 13.9 13.5-17.5 g/dL Hematocrit 39.8 L 41.0-53.0 % Current Medications Medications (Trade) Dose Ordered Sig/Marcelo Route Start Time Stop Time Status Last Admin Acetaminophen (Tylenol Tablet) 650 mg ONCE ONCE PO 04/05/25 20:30 04/05/25 20:31 DC 04/05/25 20:26 Acetaminophen/ Hydrocodone Bitart ([place] 5/325MG Tab) 1 tab ONCE ONCE PO 04/05/25 21:15 04/05/25 21:16 DC 04/05/25 21:11 Time of 1ST Reevaluation: 21:17 Reevaluation 1ST: Unchanged Time of 2ND Reevaluation: 21:05 Reevaluation 2ND: Improved Patient Education/Counseling: Diagnosis, Treatment, Prognosis, Need For Follow Up Family Education/Counseling: Diagnosis, Treatment, Prognosis, Need For Follow Up Comments pt has a clean wound. i do not apprecite any discahrge, no redness, no swelling. there are no vascular injuries. he is only very slowing oozing. the Surgicel did not stop the ooze. he is on blood thinner for a mechanical aortic valve, so i will not reverse the anticoagulation. i placed 3 loose sutures to close the wound, but allow any potential discharge, which is not present to have a change to exit. the sutures effectively stopped the ooz Additional Information Reviewed patient's previous visit(s): 11/17/23 for dog bite The following tests were ordered, and results were reviewed by me: Hgb and Hematocrit Additional information was gathered from interviewing the following independent historian: I reviewed and agreed with the following test results read by other provider: None I discussed treatments and results with medical personnel and: Patient and Comprehensive systems review obtained and negative except for what is stated in the HPI. Departure 1 Departure Time of Disposition: 21:09 Impression: Primary Impression: Bleeding from wound Disposition: HOME / SELF CARE / HOMELESS Condition: Good Discharged With: Self, Spouse Critical Care Note Critical Care Time?: No Stability Stability form required: No Heart Score Heart Score: Heart Score Response (Comments) Value History N/A 0 EKG N/A 0 Age N/A 0 Risk Factors N/A 0 Troponin N/A 0 Total 0 I personally scribed for MUMTAZ HANNAH MD ([email or web address]) on 04/05/25 at 20:27. Electronically submitted by Delano Nolan ([email or web address]). I personally scribed for MUMTAZ HANNAH MD ([email or web address]) on 04/05/25 at 21:41. El ectronically submitted by Delano Nolan ([email or web address]). MUMTAZ HANNAH MD Apr 05, 2025 20:27
[2025-04-05 20:38] LABS: Hemoglobin 13.9 g/dL (13.5-17.5)
[2025-04-05 20:39] LABS: Hematocrit 39.8 % (41.0-53.0)
[2025-04-05] MEDS: HYDROcodone-ACET 5/325MG TAB PO ONE (21:11)
[2025-04-05] MEDS: LIDOCAINE 1% HCL (LOCAL ANESTH.) INJ 20ML MDV ID ONE (21:25)
== END 2025-04-05 21:50 | disposition home or self-care (01) ==
LOC: ER 19:55
DX: S11.81XA Laceration without foreign body of other specified part of neck, initial encounter (principal); I10 Essential (primary) hypertension; F17.210 Nicotine dependence, cigarettes, uncomplicated; I25.10 Atherosclerotic heart disease of native coronary artery without angina pectoris; Z79.899 Other long term (current) drug therapy; Z95.1 Presence of aortocoronary bypass graft; Z95.2 Presence of prosthetic heart valve; X58.XXXA Exposure to other specified factors, initial encounter; Y93.89 Activity, other specified; Y92.89 Other specified places as the place of occurrence of the external cause; Y99.8 Other external cause status
CPT/HCPCS: 12002; 36415; 85014; 85018; 99283; J2003

== ENCOUNTER 2025-04-06 13:51 | Inpatient (IN) | payer MEDICAID ==
[~2025-04-06] VITALS: Ht 170.2 cm; Wt 73.7 kg
--- NOTE | 2025-04-06 14:27 | ED.PDOC ---
History of Present Illness HPI Comments This is a 64 year old male presenting to the ED with chief complaint of bleeding and abdominal pain. Patient reports that he had been seen yesterday for bleeding from a previous I&D site on his right neck, having it sutured. Patient relays that last night, he started to bleed again at home and has continued till now. Patient states that he is also experiencing abdominal pain where he injects his Lovenox, having increased swelling and 10/10 pain. Patient denies any syncope, chest pain, N/V/D, SOB, dizziness, or fever. Chief Complaint: Wound Check Time Seen by MD: 14:24 Primary Care Provider: FARRAH Reviewed Notes: Nurses Notes, Medications, Allergies Allergies: Coded Allergies: NO KNOWN ALLERGIES (Unverified , 11/13/19) Home Meds Active Scripts Bacitracin Base (Bacitracin) 500 Unit/Gm Oin, 500 UNIT TOP DAILY, #30 GM Prov:ARSENIO FRANCES PAC 11/17/23 Acetaminophen W/ Codeine (Tylenol W/Cod #3) 1 Tab Tb, 1 TAB PO Q6HP PRN, #20 TAB Prov:ARSENIO FRANCES PAC 11/17/23 Amoxicillin & Pot Clavulanate (AUGMENTIN TABLET) 875 Mg Tb, 875 MG PO BID for 10 Days, #20 TAB Prov:ARSENIO FRANCES PAC 11/17/23 Reported Medications Omeprazole (Prilosec Susp (For Gt)) 20 Mg Ss, 20 MG PO DAILY, ML 03/12/21 Losartan Potassium (Losartan Potassium) 50 Mg Tab, 1 TAB PO DAILY, #30 TAB 5 Refills 03/12/21 Amiodarone Hcl (Amiodarone Hcl) 200 Mg Tab, 1 TAB PO DAILY, #90 TAB 1 Refill 03/12/21 Amlodipine Besylate (NORVASC TABLET) 5 Mg Tb, 1 TAB PO DAILY, #30 TAB 5 Refills 03/12/21 Warfarin Sodium (Warfarin Sodium) 5 Mg Tab, 1 TAB PO DAILY, #90 TAB 1 Refill 03/12/21 Atorvastatin Calcium (ATORVASTATIN CALCIUM) 20 Mg Tab, 1 TAB PO HS, #30 TAB 5 Refills 03/12/21 Cholecalciferol (VITAMIN D3) 2,000 Unit Tab, 5000 UNIT OR DAILY, TAB 03/12/21 Digoxin (Digoxin) 125 Mcg Tab, 125 MCG PO DAILY, TAB 03/12/21 Information Source: Patient, Relative (Sibling) Mode of Arrival: Ambulatory Severity: Moderate Timing: Days Duration: Since onset Prehospital treatment: None Past Medical History PAST MEDICAL HISTORY: AFIB, CAD, High Lipids, HTN, [place] Past Medical History (Other): diverticular disease Surgical History: CABG Surgical History (Other): Tracheotomy, colonoscopy, valve perforation repair Family History Family History: Reviewed,noncontributory to illness Social History Smoker: Cigarettes Alcohol: Denies ETOH Use Drugs: Denies Drug Use Lives In: Home Constitutional: denies: chills, diaphoresis, fatigue, fever, malaise, sweats, weakness, others EENTM: denies: blurred vision, double vision, ear bleeding, ear discharge, ear drainage, ear pain, ear ringing, eye pain, eye redness, hearing loss, mouth pain, mouth swelling, nasal discharge, nose bleeding, nose congestion, nose pain, photophobia, tearing, throat pain, throat swelling, voice changes, others Respiratory: denies: cough, hemoptysis, orthopnea, SOB at rest, shortness of breath, SOB with excertion, stridor, wheezing, others Cardiovascular: denies: chest pain, dizzy spells, diaphoresis, Dyspnea on exertion, edema, irregular heart beat, left arm pain, lightheadedness, palpitations, PND, syncope, others Gastrointestinal: reports: abdominal pain; denies: abdomen distended, blood streaked bowels, constipated, diarrhea, dysphagia, difficulty swallowing, hematemesis, melena, nausea, poor appetite, poor fluid intake, rectal bleeding, rectal pain, vomiting, others Genitourinary: denies: burning, dysuria, flank pain, frequency, hematuria, incontinence, penile discharge, penile sore, pain, testicle pain, testicle swelling, urgency, others Neurological: denies: dizziness, fainting, headache, left sided numbness, left sided weakness, numbness, paresthesia, pre-existing deficit, right sided num bness, right sided weakness, seizure, speech problems, tingling, tremors, weakness, others Musculoskeletal: denies: back pain, gout, joint pain, joint swelling, muscle pain, muscle stiffness, neck pain, others Integumetry: reports: bruises; denies: change in color, change in hair/nails, dryness, laceration, lesions, lumps, rash, wounds, others Allergic/Immunocompromised: denies: Difficulty Healing, Frequent Infections, Hi ves, Itching, others Hematologic/Lymphatic: reports: easy bleeding, easy bruising; denies: anemia, blood clots, swollen glands, others Endocrine: denies: excessive hunger, excessive sweating, excessive thirst, excessive urination, flushing, intolerance to cold, intolerance to heat, unexplained weight gain, unexplained weight loss, others Psychiatric: denies: anxiety, bipolar disorder, depression, hopeless, panic disorder, schizophrenia, sleepless, suicidal, others All Other Systems: Reviewed and Negative Physical Exam General Appearance: No Apparent Distress, Normal HEENT: Normal ENT Inspection, PERRL/EOMI, Other (Rt neck surgical site with intact sutures, but there is an inferior pinhole with oozing blood.) Neck: Full Range of Motion, Non-Tender, Normal, Normal Inspection Respiratory: Chest Non-Tender, Lungs Clear, No Accessory Muscle Use, No Respiratory Distress, Normal Breath Sounds Cardiovascular: No Edema, No JVD, No Murmur, No Gallop, Normal Peripheral Pulses, Regular Rate/Rhythm Breast Exam: Deferred Gastrointestinal: No Organomegaly, Non Tender, No Pulsatile Mass, Normal Bowel Sounds, Soft, Other (2 large hematomes to the anterior abdominal wall, tennis ball in size) Genitalia: Deferred Pelvic: Deferred Rectal: Deferred Extremities: No calf tenderness, Normal capillary refill, Normal inspection, Normal range of motion, Non-tender, No pedal edema Musculoskeletal : Apperance: Normal Neurologic: Alert, rn mds II-XII nml as Tested, No Motor Deficits, Normal Affect, Normal Mood, No Sensory Deficits Cerebellar Function: Normal Reflexes: Normal Skin: Dry, Normal Color, Warm Lymphatic: No Adenopathy Was a procedure done? Was a procedure done?: Yes Sedation Sedation?: No Laceration Repair : Location Rt neck Length 0.5cm Anesthetic: Lidocaine, With epi Laceration Repair Prep: Betadine, Manual Scrub Laceration Repair Wound Comple: subcut tissue repair Laceration Repair: Number of sutures (1), SQ, Size (4-0), Nylon Informed consent obtained: Yes Risks, benefits, and alternati: Yes Differential Dx Considerations may include: coagulopathy, vascular injury, hematoma, platelet disorders X-Ray, Labs, Meds, VS Vital Signs Date Time Temp Pulse Resp B/P (MAP) Pulse Ox O2 Delivery O2 Flow Rate FiO2 04/06/25 16:09 156/76 04/06/25 15:40 98.2 58 17 133/72 (92) 95 98.2 04/06/25 15:40 58 17 95 Room Air* 0 21 04/06/25 14:04 98.0 68 12 118/54 (75) 96 98.0 Lab Test 04/06/25 14:40 Range/Units White Blood Count 12.5 H 4.4-10.8 10^3/uL Red Blood Count 3.56 L 4.5-5.90 10^6/uL Hemoglobin 12.2 L 13.5-17.5 g/dL Hematocrit 35.3 #L 41.0-53.0 % Mean Corpuscular Volume 99.2 80.0-100.0 fL Mean Corpuscular Hemoglobin 34.2 H 28.0-32.0 pg Mean Corpuscular Hemoglobin Concent 34.5 32.0-36.0 g/dL Red Cell Distribution Width 13.5 11.8-14.3 % Platelet Count 325 140-450 10^3/uL Mean Platelet Volume 7.1 6.9-10.8 fL Neutrophils (%) (Auto) 76.2 37.0-80.0 % Lymphocytes (%) (Auto) 14.0 10.0-50.0 % Monocytes (%) (Auto) 8.8 0.0-12.0 % Eosinophils (%) (Auto) 0.2 0.0-7.0 % Basophils (%) (Auto) 0.8 0.0-2.0 % Neutrophils # (Auto) 9.5 H 1.6-8.6 10 ^3/uL Lymphocytes # (Auto) 1.7 0.4-5.4 10 ^3/uL Monocytes # (Auto) 1.1 0-1.3 10 ^3/uL Eosinophils # (Auto) 0 0-0.8 10 ^3/uL Basophils # (Auto) 0.1 0-0.2 10 ^3/uL Nucleated Red Blood Cells 0.1 % Prothrombin Time 13.0 H 9.3-11.8 sec Prothrombin Time INR 1.25 H 0.9-1.15 Activated Partial Thromboplast Time 33.6 24.5-34.5 SEC Sodium Level 138 136-145 mmol/L Potassium Level 4.1 3.5-5.1 mmol/L Chloride Level 107 98-107 mmol/L Carbon Dioxide Level 23 20-31 mmol/L Anion Gap 8 5-15 Blood Urea Nitrogen 17 9-23 mg/dL Creatinine 1.34 H 0.700-1.30 mg/dL Glomerular Filtration Rate Calc 59 >90 mL/min BUN/Creatinine Ratio 12.7 10.0-20.0 Serum Glucose 134 H 74-106 mg/dL Calcium Level 9.9 8.7-10.4 mg/dL Current Medications Medications (Trade) Dose Ordered Sig/Marcelo Route Start Time Stop Time Status Last Admin Acetaminophen/ Hydrocodone Bitart ([place] 10/325MG Tab) 1 tab ONCE ONCE PO 04/06/25 14:30 04/06/25 14:39 DC 04/06/25 14:54 Fentanyl Citrate 12.5 mcg ONCE ONCE IV 04/06/25 16:00 04/06/25 16:01 DC 04/06/25 16:09 Time of 1ST Reevaluation: 15:21 Reevaluation 1ST: Unchanged Time of 2ND Reevaluation: 17:20 Reevaluation 2ND: Improved Patient Education/Counseling: Diagnosis, Treatment, Prognosis, Need For Follow Up Family Education/Counseling: Diagnosis, Treatment, Prognosis, Need For Follow Up Comments pt has a metallic aortic valve and has a slow ooze from an i/d wound, and abdominal wall hematoma from subq lovenox injections. no attempts will be make to reverse the anticoagulation at this time, since the bleeding is not a life or limb threatening issue, but reversal of the anticoagulation may cause the metallic valve to be thrombosed, which is an emergency. however, he will be admitted for further monitoring of the abdominal wall hematomas and the right neck bleeding wound the suturing from yesterday stopped the bleeding at that area, however, below it is a pin point area of oozing. the purse string suture today stopped it , but the oozing accumulated subcutaneously so it started to ooze again. i applied topical TXA on the wound and bleeding is now controlled Additional Information Reviewed patient's previous visit(s): 04/05/25 for wound check The following tests were ordered, and results were reviewed by me: CBC, Coags, Type & Screen, BMP Additional information was gathered from interviewing the following independent historian: Sister I reviewed and agreed with the following test results read by other provider: None I discussed treatments and results with medical personnel and: Patient and sister Comprehensive systems review obtained and negative except for what is stated in the HPI. SEPSIS Sepsis Screen Vital Signs Date Time Temp Pulse Resp B/P (MAP) Pulse Ox O2 Delivery O2 Flow Rate FiO2 04/06/25 16:09 156/76 04/06/25 15:40 98.2 58 17 133/72 (92) 95 98.2 04/06/25 15:40 58 17 95 Room Air* 0 21 04/06/25 14:04 98.0 68 12 118/54 (75) 96 98.0 Laboratory Tests Test 04/06/25 14:40 White Blood Count 12.5 10^3/uL (4.4-10.8) H Medications Medications Dose Ordered Sig/Marcelo Route Start Time Stop Time Status Last Admin Dose Admin Acetaminophen/ Hydrocodone Bitart 1 tab ONCE ONCE PO 04/06/25 14:30 04/06/25 14:39 DC 04/06/25 14:54 Fentanyl Citrate 12.5 mcg ONCE ONCE IV 04/06/25 16:00 04/06/25 16:01 DC 04/06/25 16:09 Departure 1 Departure Time of Disposition: 14:36 Impression: Primary Impression: Abdominal wall hematoma Qualified Codes: S30.1XXD - Contusion of abdominal wall, subsequent encounte r Additional Impressions: Bleeding from wound Coagulopathy Disposition: ADMITTED INPATIENT Admit to: Med Surg Condition: Good Discharged With: Self Critical Care Note Critical Care Time?: No Stability Stability form required: No Heart Score Heart Score: Heart Score Response (Comments) Value History N/A 0 EKG N/A 0 Age N/A 0 Risk Factors N/A 0 Troponin N/A 0 Total 0 I personally scribed for MUMTAZ HANNAH MD ([email or web address]) on 04/06/25 at 14:27. Electronically submitted by Delano Nolan ([email or web address]). MUMTAZ HANNAH MD Apr 06, 2025 14:27
[2025-04-06] MEDS: LIDOCAINE W/ EPINEPHRINE 1% 20ML VIAL ONE (14:36)
[2025-04-06] MEDS: HYDROcodone-ACET 10/325MG TAB PO ONE (14:54)
[2025-04-06 14:57] LABS: Hematocrit 35.3 % (41.0-53.0); Hemoglobin 12.2 g/dL (13.5-17.5); Mean Corpuscular Hemoglobin 34.2 pg (28.0-32.0); Mean Corpuscular Volume 99.2 fL (80.0-100.0); Nucleated Red Blood Cells % 0.1 %
[2025-04-06 15:07] LABS: Chloride 107 mmol/L (98-107); Potassium 4.1 mmol/L (3.5-5.1); Sodium 138 mmol/L (136-145)
[2025-04-06 15:08] LABS: Anion Gap 8 (5-15); Calcium 9.9 mg/dL (8.7-10.4); Carbon Dioxide 23 mmol/L (20-31)
[2025-04-06 15:12] LABS: INR 1.25 (0.9-1.15); Partial Thromboplastin Time 33.6 SEC (24.5-34.5); Prothrombin Time 13.0 sec (9.3-11.8)
[2025-04-06 15:13] LABS: BUN/Creatinine Ratio 12.7 (10.0-20.0); Blood Urea Nitrogen 17 mg/dL (9-23)
[2025-04-06 15:18] LABS: Glucose 134 mg/dL (74-106)
[2025-04-06 15:40] VITALS: PULSE 58; RESP 17; O2SAT 95
[2025-04-06] MEDS ORDERED: TRANEXAMIC ACID 1,000 MG in SODIUM CHL 0.9% 100 ML IV ONE (15:45)
[2025-04-06] MEDS: fentaNYL CITRATE 100 MCG/2 ML VL IV ONE ×2 (16:09→20:25)
[2025-04-06] MEDS: TRANEXAMIC ACID 1,000 mg/10ml INJ VIAL IV ONE (16:44)
[2025-04-06 19:46] VITALS: O2SAT 92
[2025-04-06 20:31] LABS: Urine Protein, UAD TRACE (Negative)
--- NOTE | 2025-04-06 20:42 | DVHHP2 ---
Admitting Diagnosis: Hematoma abdominal Right neck wound History of Present Illness This is a 64 year old male presenting to the ED with chief complaint of bleeding and abdominal pain. Patient reports that he had been seen yesterday for bleeding from a previous I&D site on his right neck, having it sutured. Patient relays that last night, he started to bleed again at home and has continued till now. Patient states that he is also experiencing abdominal pain where he injects his Lovenox, having increased swelling and 10/10 pain. Patient denies any syncope, chest pain, N/V/D, SOB, dizziness, or fever. PAST MEDICAL HISTORY: AFIB, CAD, High Lipids, HTN, [place] Past Medical History (Other): diverticular disease Surgical History: CABG Surgical History (Other): Tracheotomy, colonoscopy, valve perforation repair Family History Family History: Reviewed,noncontributory to illness Social History Smoker: Cigarettes Alcohol: Denies ETOH Use Drugs: Denies Drug Use Lives In: Home Patient Family History: Patient reports no known family medical history. Allergies: Coded Allergies: NO KNOWN ALLERGIES (Unverified , 11/13/19) Home Meds Active Scripts Bacitracin Base (Bacitracin) 500 Unit/Gm Oin, 500 UNIT TOP DAILY, #30 GM Prov:ARSENIO FRANCES PAC 11/17/23 Acetaminophen W/ Codeine (Tylenol W/Cod #3) 1 Tab Tb, 1 TAB PO Q6HP PRN, #20 TAB Prov:ARSENIO FRANCES PAC 11/17/23 Amoxicillin & Pot Clavulanate (AUGMENTIN TABLET) 875 Mg Tb, 875 MG PO BID for 10 Days, #20 TAB Prov:ARSENIO FRANCES PAC 11/17/23 Reported Medications Omeprazole (Prilosec Susp (For Gt)) 20 Mg Ss, 20 MG PO DAILY, ML 03/12/21 Losartan Potassium (Losartan Potassium) 50 Mg Tab, 1 TAB PO DAILY, #30 TAB 5 Refills 03/12/21 Amiodarone Hcl (Amiodarone Hcl) 200 Mg Tab, 1 TAB PO DAILY, #90 TAB 1 Refill 03/12/21 Amlodipine Besylate (NORVASC TABLET) 5 Mg Tb, 1 TAB PO DAILY, #30 TAB 5 Refills 03/12/21 Warfarin Sodium (Warfarin Sodium) 5 Mg Tab, 1 TAB PO DAILY, #90 TAB 1 Refill 03/12/21 Atorvastatin Calcium (ATORVASTATIN CALCIUM) 20 Mg Tab, 1 TAB PO HS, #30 TAB 5 Refills 03/12/21 Cholecalciferol (VITAMIN D3) 2,000 Unit Tab, 5000 UNIT OR DAILY, TAB 03/12/21 Digoxin (Digoxin) 125 Mcg Tab, 125 MCG PO DAILY, TAB 03/12/21 Vital Signs Vital Signs Date Time Temp Pulse Resp B/P (MAP) Pulse Ox O2 Delivery O2 Flow Rate FiO2 04/06/25 20:25 125/68 04/06/25 19:46 92 Room Air* 0 21 04/06/25 19:25 73 14 04/06/25 15:40 98.2 98.2 Physical Exam General-64 years old male, well nourished well developed. Mild distress HEENT-atraumatic, normocephalic. Right neck one bleeding stopped Heart-regular rate and rhythm Lungs clear to auscultate bilaterally Abdomen soft, mild tender bilateral hematoma region, nondistended Musculoskeletal-no edema cyanosis Neuro-AO x3, no focal deficit Results Labs Test 04/06/25 20:00 04/06/25 14:40 Range/Units White Blood Count 12.5 H 4.4-10.8 10^3/uL Red Blood Count 3.56 L 4.5-5.90 10^6/uL Hemoglobin 12.2 L 13.5-17.5 g/dL Hematocrit 35.3 #L 41.0-53.0 % Mean Corpuscular Volume 99.2 80.0-100.0 fL Mean Corpuscular Hemoglobin 34.2 H 28.0-32.0 pg Mean Corpuscular Hemoglobin Concent 34.5 32.0-36.0 g/dL Red Cell Distribution Width 13.5 11.8-14.3 % Platelet Count 325 140-450 10^3/uL Mean Platelet Volume 7.1 6.9-10.8 fL Neutrophils (%) (Auto) 76.2 37.0-80.0 % Lymphocytes (%) (Auto) 14.0 10.0-50.0 % Monocytes (%) (Auto) 8.8 0.0-12.0 % Eosinophils (%) (Auto) 0.2 0.0-7.0 % Basophils (%) (Auto) 0.8 0.0-2.0 % Neutrophils # (Auto) 9.5 H 1.6-8.6 10 ^3/uL Lymphocytes # (Auto) 1.7 0.4-5.4 10 ^3/uL Monocytes # (Auto) 1.1 0-1.3 10 ^3/uL Eosinophils # (Auto) 0 0-0.8 10 ^3/uL Basophils # (Auto) 0.1 0-0.2 10 ^3/uL Nucleated Red Blood Cells 0.1 % Prothrombin Time 13.0 H 9.3-11.8 sec Prothrombin Time INR 1.25 H 0.9-1.15 Activated Partial Thromboplast Time 33.6 24.5-34.5 SEC Sodium Level 138 136-145 mmol/L Potassium Level 4.1 3.5-5.1 mmol/L Chloride Level 107 98-107 mmol/L Carbon Dioxide Level 23 20-31 mmol/L Anion Gap 8 5-15 Blood Urea Nitrogen 17 9-23 mg/dL Creatinine 1.34 H 0.700-1.30 mg/dL Glomerular Filtration Rate Calc 59 >90 mL/min BUN/Creatinine Ratio 12.7 10.0-20.0 Serum Glucose 134 H 74-106 mg/dL Calcium Level 9.9 8.7-10.4 mg/dL Primary Diagnosis Abdominal wall hematoma Right neck bleeding resolved Plan Currently no active bleeding. Trend CBC q.[address] abdomen and pelvis to assess for hematoma Regular diet IV fluids Resume Coumadin per pharmacy protocol Pain control Full code PPI prophylaxis Plan discussed with: Patient Date of Service: Apr 06, 2025 Billing Provider: WILBER REICH MD Common Visit Codes: [id number] INP/OBS CARE (MOD) WILBER REICH MD Apr 06, 2025 20:42
[2025-04-06 21:11] LABS: Hematocrit 32.5 % (41.0-53.0); Hemoglobin 11.1 g/dL (13.5-17.5); Mean Corpuscular Hemoglobin 34.0 pg (28.0-32.0); Mean Corpuscular Volume 99.7 fL (80.0-100.0); Nucleated Red Blood Cells % 0.0 %
[2025-04-06] MEDS: LACTATED RINGER'S 1,000 ML IV ONE (21:35)
[2025-04-06] MEDS: ATORVASTATIN 20 MG TAB PO SCH (22:18)
[2025-04-06 22:40] VITALS: BP 157/80; PULSE 59; RESP 17; TEMP 97.1; O2SAT 95
[2025-04-06 23:33] VITALS: BP 157/80; PULSE 59; RESP 17; TEMP 97.1; O2SAT 95
[2025-04-06 23:40] VITALS: PULSE 59; RESP 17; O2SAT 95
[2025-04-07 01:00] VITALS: BP 152/83; PULSE 65; RESP 17; TEMP 98.4; O2SAT 95
--- NOTE | 2025-04-07 04:30 | DVH ---
EXAM: CT CT AB PEL WO CON-NO ORAL OR IV HISTORY: assess for hematoma COMPARISON: None TECHNIQUE: Helical CT images of the abdomen and pelvis were performed without IV contrast. Sagittal a nd coronal reformatted images were obtained. This CT exam was performed using one or more of the foll owing dose reduction techniques: Automated exposure control, adjustment of the mA and/or kv according to patient size, or the use of iterative reconstruction techniques. Radiation Dose: Abdomen/Pelvis: CTDIvol 6.34 mGy, DLP 388.31 mGy*cm. FINDINGS: CT abdomen: There is bilateral lower lobe scarring versus atelectasis. There are postoperative orourke es median sternotomy and aortic valve replacement. The heart is borderline enlarged. The liver measur es 20 cm longitudinal. The noncontrast spleen, gallbladder, pancreas, kidneys, and adrenal glands are unremarkable. No abdominal aortic aneurysm. There are atherosclerotic calcifications of the abdomina l aorta and major branches. There is a heterogeneous hematoma involving the right rectus abdominus mu scle measuring 21 cm longitudinal (images 50 2-89, series 2 ; image 54, series 602). CT pelvis: No abnormal bowel dilatation or free air. There is irregular fluid in the anterior pelvis , likely blood products. The appendix and urinary bladder are unremarkable. The prostate is mildly en larged. There are surgical clips in the left inguinal region. There is moderate lumbar degenerative d isc disease. There is slight retrolisthesis L5 on S1. There is [id number]-[id number] osteoarthritis of th e bilateral hips. There are thick calcifications along the posterior aspect of the right hip and isch ium (images 90-97, series 2). There is spina bifida occulta of the sacrum. IMPRESSION: 1. Right rectus abdominus intramuscular hematoma measures up to 21 cm longitudinal. 2. Postoperative changes the heart, Borderline cardiomegaly, and extensive atherosclerotic vascular d isease in the abdomen and pelvis. 3. Mild prostatic enlargement. 4. Postoperative changes of the left inguinal region. 5. Thick heterotopic ossification along the posterior aspect of the right hip and ischium, likely due to old soft tissue injury. 6. No evidence of bowel obstruction, acute appendicitis, or other acute process in the abdomen or pel vis.
[2025-04-07 05:36] LABS: Hematocrit 31.6 % (41.0-53.0); Hemoglobin 10.8 g/dL (13.5-17.5); Mean Corpuscular Hemoglobin 33.6 pg (28.0-32.0); Mean Corpuscular Volume 98.4 fL (80.0-100.0); Nucleated Red Blood Cells % 0.1 %
[2025-04-07] MEDS: HYDROcodone-ACET 5/325MG TAB PO PRN (06:15)
[2025-04-07 09:00] VITALS: BP 142/84; PULSE 61; RESP 14; TEMP 97.8; O2SAT 90
[2025-04-07] MEDS: AMIODARONE HCL 200 MG TAB PO SCH (09:06)
[2025-04-07] MEDS: CHOLECALCIFEROL (VITD3) 1,000UNIT=25mCg TAB PO SCH (09:06)
[2025-04-07] MEDS: DIGOXIN 0.125 MG TAB PO SCH (09:07)
[2025-04-07] MEDS: LOSARTAN POTASSIUM 50 MG TAB PO SCH (09:07)
[2025-04-07 10:47] LABS: INR 1.14 (0.9-1.15); Partial Thromboplastin Time 27.6 SEC (24.5-34.5); Prothrombin Time 11.9 sec (9.3-11.8)
[2025-04-07 12:35] LABS: Hematocrit 28.9 % (41.0-53.0); Hemoglobin 9.9 g/dL (13.5-17.5); Mean Corpuscular Hemoglobin 34.0 pg (28.0-32.0); Mean Corpuscular Volume 99.2 fL (80.0-100.0); Nucleated Red Blood Cells % 0.1 %
[2025-04-07 13:00] VITALS: BP 124/61; PULSE 71; RESP 18; TEMP 97.6; O2SAT 93
[2025-04-07] MEDS: WARFARIN SODIUM 1 MG TAB PO ONE (15:08)
[2025-04-07] MEDS: LACTATED RINGER'S 1,000 ML IV SCH (16:04)
[2025-04-07] MEDS: cefTRIAXone 1GM/50ML D5W 50 ML IV SCH (16:24)
--- NOTE | 2025-04-07 16:29 | DVHPNRES ---
Progress Note Date Seen: Apr 07, 2025 Resident Creating Document: MASTER TORIBIO RESIDENT Has the PT tested + for MRSA If YES, has PT been informed?: No Medical Necessity Reason Pt with a Central, PICC or Fol: No Subjective Review of Systems Patient is a64 year old male with past medical history of atrial fibrillation, CAD, hypertension, OR, mechanical aortic valve replacement. He started bleeding from a previous I&D site on his right side of the neck 3 days ago. At the same time he started having lower abdominal pain at the site of subcutaneous Lovenox injection. The pain started in the right lower quadrant, eventually spreading to the whole abdomen. Next day he noticed a purple bruise on the right side of the lower abdomen. Last night, he presented to ED with bleeding from the I&D site and the neck. Patient denied any syncope, chest pain, N/V/D, SOB, dizziness, or fever. CT done in ED shows right rectus abdominus hematoma. Past surgical history: CABG, artificial aortic valve replacement, tracheostomy Personal history: Smokes 1/3 pack daily, drinks 6-12 beers weekly. Denies recreational drug use. Lives at home. 04/07/25: Patient examined on bedside. Complained of pain in abdomen. He reported bleeding from the I&D site last night. ROS: Constitutional: Denies weight loss, fever and chills. HEENT: Denies changes in vision and hearing. Respiratory: Denies shortness of breath and cough Cardiovascular: Denies chest discomfort or palpitations GI: Complains of abdominal pain. Denies nausea, vomiting and diarrhea. : Denies dysuria and urinary frequency. Musculoskeletal: Denies myalgias and joint pain Skin: Multiple bruises due to blood thinners. Neurological: Denies dizziness, headache, vision or hearing problems Objective vital signs Vital Sign Date Time Temp Pulse Resp B/P (MAP) Pulse Ox O2 Delivery O2 Flow Rate FiO2 04/07/25 13:00 97.6 71 18 124/61 (82) 93 97.6 04/07/25 08:05 Nasal Cannula* 2 28 Total Intake and Output 04/06/25 04/06/25 04/07/25 15:00 23:00 07:00 Intake Total 480 ml Output Total 400 ml Balance 80 ml medications Current Medications Medications Dose Ordered Sig/Marcelo Route Start Time Stop Time Status Last Admin Dose Admin Amiodarone HCl 200 mg DAILY PO 04/07/25 10:00 04/07/25 09:06 200 MG Amlodipine Besylate 5 mg DAILY PO 04/07/25 10:00 04/07/25 09:07 5 MG Atorvastatin Calcium 20 mg HS PO 04/06/25 22:00 04/06/25 22:18 20 MG Digoxin 0.125 mg DAILY PO 04/07/25 10:00 04/07/25 09:07 0.125 MG Losartan Potassium 50 mg DAILY PO 04/07/25 10:00 04/07/25 09:07 50 MG Cholecalciferol 5,000 unit DAILY PO 04/07/25 10:00 04/07/25 09:06 5,000 UNIT Warfarin Sodium RX PROTOCOL PER PHARMACY PO 04/06/25 20:45 Acetaminophen/ Hydrocodone Bitart 1 tab Q6HPRN PRN PO 04/07/25 05:30 04/07/25 12:12 1 TAB Lactated Ringer's 1,000 ml @ 60 mls/hr [id number] IV 04/07/25 15:45 04/07/25 16:04 60 MLS/HR Ceftriaxone Sodium 50 ml @ 100 mls/hr DAILY@09 IV 04/07/25 15:45 Examination General: Patient alert and oriented in person, place and time. Patient following commands. HEENT: neck wound dressing looks dry. Normocephalic, atraumatic. Respiratory/pulmonary: Clear lungs bilaterally, no associated crackles or wheezes. Cardiovascular: Normal heart sounds S1 and S2 with no associated murmurs Abdomen: Abdominal swelling, tenderess at guarding. Midline scar present in the middle quadrant. Bilateral large hematomas present in the lower abdomen. Tenderness and guarding present. Extremities: There is no peripheral edema present at the lower extremities. Peripheral Pulses: 3+ Radial (R). 3+ Radial (L). 3+ Dorsalis pedis (R). 3+ Dorsalis pedis(L) Skin: No rashes or pruritus, there is no sacral edema present at this time. Neurological: Intact cranial nerves with no focal neurologic deficits laboratory and microbiology Laboratory Tests 04/07/25 12:14 04/06/25 14:40 Test 04/06/25 14:40 Range/Units Serum Glucose 134 H 74-106 mg/dL Problem List/Assessment/Plan Problem List/Assessment/Plan 1. B/L rectus abdominis hematomas - CT abdomen shows right rectus abdominis intramuscular hematoma measuring up to 21 cm longitudinal. - Surgery consulted; Advised repeat CT Abdomen tomorrow, NPO after midnight, and consult vascular surgery. - Continue Ringer's lactate. - Pain managed with Acetamenophen, Hanna, Morphine as needed. 2. Abdominal wall infection, rule out - Labs show neutrophilia. - Will rule out abdominal wall infection in rapidly growing hematoma with abdominal guarding. - Ordered CK, lactic acid 3. Bleeding neck wound - Continuous bleeding from I&D drainage site. Skin/soft tissue infection treated with I&D. 3. Anemia due to acute blood loss - Hb 9.9 (down from 12.2 on 04/06) - Monitor CBC 4. Hypertension - Continue losartan 50 mg p.o. daily - Continue amlodipine 5 mg p.o. daily 5. AFib 6. Hx of aortic valve replacement - Continue amiodarone 200 mg p.o. daily - Continues warfarin per protocol 6. Hyperlipidemia - Continue atorvastatin 20 mg p.o. daily Goals of cares discussed with patient at bedside for more than 35 minutes Full code Plan discussed with Dr. Dickey Plan discussed with: Patient My Orders My Orders Orders - MASTER TORIBIO RESIDENT Procedure Category Date Status Time Lactated Ringer's PHA 04/07/25 In Process 15:45 Ceftriaxone 1gm/50ml PHA 04/07/25 In Process D5w (Rocephin) 15:45 Creatine Kinase LAB 04/07/25 Logged 15:39 Lactic Acid W/ Reflex LAB 04/07/25 Logged Order 15:39 Comprehensive LAB 04/08/25 Verified Metabolic Panel 04:00 Date of Service: Apr 07, 2025 Billing Provider: GISSEL CHOW MD Common Visit Codes: [id number] INP/OBS CARE(HIGH) MASTER TORIBIO RESIDENT Apr 07, 2025 16:29 GISSEL CHOW MD Apr 15, 2025 02:14
[2025-04-07 17:00] VITALS: BP 149/92; PULSE 66; RESP 14; TEMP 97.7; O2SAT 94
[2025-04-07] MEDS ORDERED: MORPHINE SULFATE INJ 2 MG/ml SYRG IV PRN (17:15)
[2025-04-07] MEDS: MORPHINE SULFATE INJ 2 MG/ml SYRG IV PRN (17:31)
--- NOTE | 2025-04-07 18:11 | DVHINCON2 ---
Date of service: Apr 07, 2025 Family History: Patient reports no known family medical history. Allergies: Coded Allergies: NO KNOWN ALLERGIES (Unverified , 11/13/19) Home Meds Active Scripts Bacitracin Base (Bacitracin) 500 Unit/Gm Oin, 500 UNIT TOP DAILY, #30 GM Prov:ARSENIO FRANCES PAC 11/17/23 Acetaminophen W/ Codeine (Tylenol W/Cod #3) 1 Tab Tb, 1 TAB PO Q6HP PRN, #20 TAB Prov:ARSENIO FRANCES Sami PAC 11/17/23 Amoxicillin & Pot Clavulanate (AUGMENTIN TABLET) 875 Mg Tb, 875 MG PO BID for 10 Days, #20 TAB Prov:ARSENIO FRANCES PAC 11/17/23 Reported Medications Omeprazole (Prilosec Susp (For Gt)) 20 Mg Ss, 20 MG PO DAILY, ML 03/12/21 Losartan Potassium (Losartan Potassium) 50 Mg Tab, 1 TAB PO DAILY, #30 TAB 5 Refills 03/12/21 Amiodarone Hcl (Amiodarone Hcl) 200 Mg Tab, 1 TAB PO DAILY, #90 TAB 1 Refill 03/12/21 Amlodipine Besylate (NORVASC TABLET) 5 Mg Tb, 1 TAB PO DAILY, #30 TAB 5 Refills 03/12/21 Warfarin Sodium (Warfarin Sodium) 5 Mg Tab, 1 TAB PO DAILY, #90 TAB 1 Refill 03/12/21 Atorvastatin Calcium (ATORVASTATIN CALCIUM) 20 Mg Tab, 1 TAB PO HS, #30 TAB 5 Refills 03/12/21 Cholecalciferol (VITAMIN D3) 2,000 Unit Tab, 5000 UNIT OR DAILY, TAB 03/12/21 Digoxin (Digoxin) 125 Mcg Tab, 125 MCG PO DAILY, TAB 03/12/21 Current Medications Current Medications Medications (Trade) Dose Ordered Sig/Marcelo Route PRN Reason Start Time Stop Time Status Last Admin Amiodarone HCl (Cordarone Tablet) 200 mg DAILY PO 04/07/25 10:00 04/07/25 09:06 Amlodipine Besylate (Norvasc Tablet) 5 mg DAILY PO 04/07/25 10:00 04/07/25 09:07 Atorvastatin Calcium (Lipitor) 20 mg HS PO 04/06/25 22:00 04/06/25 22:18 Digoxin (Lanoxin Tablet) 0.125 mg DAILY PO 04/07/25 10:00 04/07/25 09:07 Losartan Potassium (Cozaar Tablet) 50 mg DAILY PO 04/07/25 10:00 04/07/25 09:07 Cholecalciferol (Vitamin D3 Tablet) 5,000 unit DAILY PO 04/07/25 10:00 04/07/25 09:06 Warfarin Sodium (Coumadin Per Rx Protocol) RX PROTOCOL PER PHARMACY PO 04/06/25 20:45 Acetaminophen/ Hydrocodone Bitart ([place] 5/325MG Tab) 1 tab Q6HPRN PRN PO MODERATE PAIN (4-6 PAIN SCALE) 04/07/25 05:30 04/07/25 17:11 DC 04/07/25 12:12 Lactated Ringer's 1,000 ml @ 60 mls/hr [id number] IV 04/07/25 15:45 04/07/25 16:04 Ceftriaxone Sodium 50 ml @ 100 mls/hr DAILY@09 IV 04/07/25 15:45 04/07/25 16:24 Acetaminophen/ Hydrocodone Bitart ([place] 10/325MG Tab) 1 tab Q6HP PRN PO MODERATE PAIN (4-6 PAIN SCALE) 04/07/25 17:15 Morphine Sulfate 1 mg Q1HP PRN IV SEVERE PAIN (7-10 PAIN SCALE) 04/07/25 17:15 04/07/25 17:16 DC Morphine Sulfate 2 mg Q1HP PRN IV SEVERE PAIN (7-10 PAIN SCALE) 04/07/25 17:15 04/07/25 17:31 Vital Signs Vital Signs Date Time Temp Pulse Resp B/P (MAP) Pulse Ox O2 Delivery O2 Flow Rate FiO2 04/07/25 17:31 101 18 149/92 04/07/25 17:00 97.7 94 97.7 04/07/25 08:05 Nasal Cannula* 2 28 Labs/Diagnostic Data Labs Test 04/07/25 16:45 04/07/25 12:14 04/07/25 10:21 04/06/25 20:00 Range/Units Lactic Acid Level 1.4 0.4-2.0 mmol/L Creatine Kinase 383 H 46-171 U/L White Blood Count 13.3 H 4.4-10.8 10^3/uL Red Blood Count 2.91 L 4.5-5.90 10^6/uL Hemoglobin 9.9 L 13.5-17.5 g/dL Hematocrit 28.9 L 41.0-53.0 % Mean Corpuscular Volume 99.2 80.0-100.0 fL Mean Corpuscular Hemoglobin 34.0 H 28.0-32.0 pg Mean Corpuscular Hemoglobin Concent 34.2 32.0-36.0 g/dL Red Cell Distribution Width 13.2 11.8-14.3 % Platelet Count 309 140-450 10^3/uL Mean Platelet Volume 7.3 6.9-10.8 fL Neutrophils (%) (Auto) 74.7 37.0-80.0 % Lymphocytes (%) (Auto) 14.2 10.0-50.0 % Monocytes (%) (Auto) 10.1 0.0-12.0 % Eosinophils (%) (Auto) 0.3 0.0-7.0 % Basophils (%) (Auto) 0.7 0.0-2.0 % Neutrophils # (Auto) 9.9 H 1.6-8.6 10 ^3/uL Lymphocytes # (Auto) 1.9 0.4-5.4 10 ^3/uL Monocytes # (Auto) 1.3 0-1.3 10 ^3/uL Eosinophils # (Auto) 0 0-0.8 10 ^3/uL Basophils # (Auto) 0.1 0-0.2 10 ^3/uL Nucleated Red Blood Cells 0.1 % Prothrombin Time 11.9 H 9.3-11.8 sec Prothrombin Time INR 1.14 0.9-1.15 Activated Partial Thromboplast Time 27.6 24.5-34.5 SEC Urine Color Yellow Yellow Urine Clarity Clear Clear Urine pH 5.5 5.0-9.0 Urine Specific [place] 1.020 1.001-1.035 Urine Protein Trace H Negative Urine Ketones Negative Negative Urine Blood Negative Negative /uL Urine Nitrite Negative Negative Urine Bilirubin Negative Negative Urine Urobilinogen Normal Negative mg/dL Urine Leukocyte Esterase Negative Negative /uL Urine RBC <1 0 - 3 /hpf Urine Microscopic WBC 1 0-3 /HPF Urine Squamous Epithelial Cells Few <5 /hpf Urine Bacteria None seen None Seen /hpf Urine Hyaline Casts Few 0 - 2 /lpf Urine Mucus Few None Seen Urine Glucose Normal Normal mg/dL Test 7/5/25 14:40 Range/Units Sodium Level 138 136-145 mmol/L Potassium Level 4.1 3.5-5.1 mmol/L Chloride Level 107 98-107 mmol/L Carbon Dioxide Level 23 20-31 mmol/L Anion Gap 8 5-15 Blood Urea Nitrogen 17 9-23 mg/dL Creatinine 1.34 H 0.700-1.30 mg/dL Glomerular Filtration Rate Calc 59 >90 mL/min BUN/Creatinine Ratio 12.7 10.0-20.0 Serum Glucose 134 H 74-106 mg/dL Calcium Level 9.9 8.7-10.4 mg/dL Assessment [id number] AFEBRILE VSS ABD SOFT STABLE B/L ABD WALL HEMATOMAS SEC TO LOVENOX INJ. NO ACUTE INTRAABD PROCESS CONTINUE CLOSE OBSERVATION VASCULAR SURGERY EVAL CONSIDER REPEAT CT ABD PELVIS WITH IV CONTRAST INDICATED CONSIDER IR EVAL FOR POSSIBLE DRAINAGE INDICATED HOLD ANTICOAGULATION DISCUSSED WITH FAMILY Plan discussed with: Patient KELL FITZGERALD MD Apr 07, 2025 18:11
--- NOTE | 2025-04-07 18:37 | DVHINCON2 ---
DATE OF CONSULTATION: 04/07/2025 HISTORY OF PRESENT ILLNESS: This patient is 64 years old, coming in with abdominal pain, swelling in the right lower and left lower abdomen with bruising on both the sides. I was asked to see him with regards to potential for drainage of hematoma and he is on Lovenox that he gets injected and the reason for him being on Lovenox is because he had aortic valve replacement done with metallic valve and he was on blood thinners. Currently, no nausea or vomiting. No hematemesis or melena. No bleeding per rectum. PAST MEDICAL HISTORY: Hypertension. No diabetes. PAST SURGICAL HISTORY: Aortic valve replacement as the surgical history and he has had a right hemicolectomy, tracheostomy in the past, and he also had a chest tube placement on the right side. This is in 11/2020, from which he recovered and he was finally taken to hospice and from that point onwards, he remained stable. PHYSICAL EXAMINATION: VITAL SIGNS: Currently, he is afebrile, stable signs. HEENT: With no evidence of pallor, cyanosis or jaundice. NECK: Supple, nontender with no thyromegaly or lymphadenopathy. CHEST AND LUNGS: Clear. HEART: Within normal limits. ABDOMEN: Soft. He is tender in the right lower abdomen and the left lower abdomen, more on the right than the left. There is some palpable swelling as well. NEUROLOGIC: Not assessed. EXTREMITIES: Unremarkable. DIAGNOSTIC DATA: CT scan is suggesting a hematoma, which is contained in the right abdominal wall and the left abdominal wall, presumably secondary to the Lovenox injections. He is on anticoagulation. His INR has been stabilized. He is off the blood thinners and the CAT scan did not show any acute abdominal process. CLINICAL IMPRESSION: Bilateral lower abdominal wall hematoma, appears to be stable. PLAN: Continue close observation. Continue monitoring of his anticoagulation and consider surgery based upon ongoing evaluation. Repeat CT scan of the abdomen and pelvis with possible IV contrast can be considered, his Vascular Surgery evaluation as well, and then possibility of IR drainage as indicated. He is high risk for surgery and the plan would be is to consider emergent surgery based upon ongoing evaluation. MD LUCHO Hernandez/CLEMENTE TID: [id number] RECEIPT: [id number] cc: Jose Cuevas
[2025-04-07 20:00] VITALS: PULSE 63; RESP 17
[2025-04-07 20:36] LABS: Hematocrit 30.9 % (41.0-53.0); Hemoglobin 10.5 g/dL (13.5-17.5); Mean Corpuscular Hemoglobin 33.6 pg (28.0-32.0); Mean Corpuscular Volume 98.5 fL (80.0-100.0); Nucleated Red Blood Cells % 0.1 %
[2025-04-07 21:00] VITALS: BP 146/85; PULSE 63; RESP 17; TEMP 97.5; O2SAT 91
[2025-04-08] VITALS (7 sets, daily range): BP systolic 106–154; BP diastolic 64–83; PULSE 59–74; RESP 15–20; TEMP 97.3–98.5; O2SAT 90–97
[2025-04-08] MEDS: HYDROcodone-ACET 10/325MG TAB PO PRN (08:59)
[2025-04-08 09:34] LABS: Hematocrit 27.0 % (41.0-53.0); Hemoglobin 9.4 g/dL (13.5-17.5); Mean Corpuscular Hemoglobin 34.3 pg (28.0-32.0); Mean Corpuscular Volume 99.0 fL (80.0-100.0); Nucleated Red Blood Cells % 0.0 %
[2025-04-08 09:48] LABS: INR 1.12 (0.9-1.15); Partial Thromboplastin Time 26.2 SEC (24.5-34.5); Prothrombin Time 11.7 sec (9.3-11.8)
[2025-04-08 09:51] LABS: Albumin 4.2 g/dL (3.2-4.8); Alkaline Phosphatase 65 U/L (46-116); Anion Gap 6 (5-15); BUN/Creatinine Ratio 12.5 (10.0-20.0); Bilirubin, Total 0.5 mg/dL (0.2-1.0); Blood Urea Nitrogen 14 mg/dL (9-23); Calcium 9.5 mg/dL (8.7-10.4); Carbon Dioxide 27 mmol/L (20-31); Chloride 106 mmol/L (98-107); Potassium 4.2 mmol/L (3.5-5.1); Sodium 139 mmol/L (136-145); Total Protein 6.7 g/dL (5.7-8.2)
[2025-04-08 09:56] LABS: Alanine Aminotransferase 47 U/L (7-40); Glucose 110 mg/dL (74-106)
[2025-04-08 10:16] LABS: Hepatitis B Surface Antigen Negative (Negative)
[2025-04-08 11:10] LABS: Hepatitis C Antibody Reactive (Negative)
[2025-04-08] MEDS: IOHEXOL 300 MG/ML 100ML BOTTLE IJ ONE (12:59)
[2025-04-08] MEDS: LACTATED RINGER'S 1,000 ML IV SCH (13:00)
--- NOTE | 2025-04-08 13:00 | DVHCONRES ---
Date Seen: Apr 08, 2025 Resident Creating Document: CORDELIA MILLER Jr., MD Referring Physician er Reason for Consultation Rectus sheath hematoma History of Present Illness Patient is a64 year old male with past medical history of atrial fibrillation, CAD, hypertension, [place], mechanical aortic valve replacement. He started bleeding from a previous I&D site on his right side of the neck 3 days ago. At the same time he started having lower abdominal pain at the site of subcutaneous Lovenox injection. The pain started in the right lower quadrant, eventually spreading to the whole abdomen. Next day he noticed a purple bruise on the right side of the lower abdomen. Last night, he presented to ED with bleeding from the I&D site and the neck. Patient denied any syncope, chest pain, N/V/D, SOB, dizziness, or fever. CT done in ED shows right rectus abdominus hematoma. Past Medical History atrial fibrillation, CAD, hypertension, [place], mechanical aortic valve replacement. Past Surgical History Neck abscess drainage, aortic valve replacement Family History: Patient reports no known family medical history. Social History Negative Allergies: Coded Allergies: NO KNOWN ALLERGIES (Unverified , 11/13/19) Home Meds Active Scripts Bacitracin Base (Bacitracin) 500 Unit/Gm Oin, 500 UNIT TOP DAILY, #30 GM Prov:ARSENIO FRANCES PAC 11/17/23 Acetaminophen W/ Codeine (Tylenol W/Cod #3) 1 Tab Tb, 1 TAB PO Q6HP PRN, #20 TAB Prov:ARSENIO FRANCES PAC 11/17/23 Amoxicillin & Pot Clavulanate (AUGMENTIN TABLET) 875 Mg Tb, 875 MG PO BID for 10 Days, #20 TAB Prov:ARSENIO FRANCES PAC 11/17/23 Reported Medications Omeprazole (Prilosec Susp (For Gt)) 20 Mg Ss, 20 MG PO DAILY, ML 03/12/21 Losartan Potassium (Losartan Potassium) 50 Mg Tab, 1 TAB PO DAILY, #30 TAB 5 Refills 03/12/21 Amiodarone Hcl (Amiodarone Hcl) 200 Mg Tab, 1 TAB PO DAILY, #90 TAB 1 Refill 03/12/21 Amlodipine Besylate (NORVASC TABLET) 5 Mg Tb, 1 TAB PO DAILY, #30 TAB 5 Refills 03/12/21 Warfarin Sodium (Warfarin Sodium) 5 Mg Tab, 1 TAB PO DAILY, #90 TAB 1 Refill 03/12/21 Atorvastatin Calcium (ATORVASTATIN CALCIUM) 20 Mg Tab, 1 TAB PO HS, #30 TAB 5 Refills 03/12/21 Cholecalciferol (VITAMIN D3) 2,000 Unit Tab, 5000 UNIT OR DAILY, TAB 03/12/21 Digoxin (Digoxin) 125 Mcg Tab, 125 MCG PO DAILY, TAB 03/12/21 Current Medications Current Medications Medications (Trade) Dose Ordered Sig/Marcelo Route PRN Reason Start Time Stop Time Status Last Admin Lactated Ringer's 1,000 ml @ 60 mls/hr [id number] IV 04/07/25 15:45 04/07/25 16:04 Ceftriaxone Sodium 50 ml @ 100 mls/hr DAILY@09 IV 04/07/25 15:45 04/08/25 08:57 Acetaminophen/ Hydrocodone Bitart ([place] 10/325MG Tab) 1 tab Q6HP PRN PO MODERATE PAIN (4-6 PAIN SCALE) 04/07/25 17:15 04/08/25 08:59 Morphine Sulfate 1 mg Q1HP PRN IV SEVERE PAIN (7-10 PAIN SCALE) 04/07/25 17:15 04/07/25 17:16 DC Morphine Sulfate 2 mg Q1HP PRN IV SEVERE PAIN (7-10 PAIN SCALE) 04/07/25 17:15 04/08/25 05:23 Lactated Ringer's 1,000 ml @ 100 mls/hr Q10H IV 04/08/25 13:00 UNV Review of Systems All systems reviewed otherwise negative other than what is in HPI. Vital Signs Vital Signs Date Time Temp Pulse Resp B/P (MAP) Pulse Ox O2 Delivery O2 Flow Rate FiO2 04/08/25 09:00 97.9 60 18 118/73 (88) 94 97.9 04/08/25 08:00 Nasal Cannula* 2 28 Physical Exam Head eyes ears nose and throat exam eyes are nonicteric conjunctiva is pink neck was supple no JVD no lymphadenopathy no carotid bruits lungs are clear to auscultation heart was regular rate and rhythm abdomen had ecchymosis in the left and right lower quadrants. There was tenderness more in the right lower quadrant than left. Femoral and pedal pulses palpable. Labs/Diagnostic Data Labs Test 04/08/25 09:14 04/07/25 16:45 04/06/25 20:00 Range/Units White Blood Count 13.4 #H 4.4-10.8 10^3/uL Red Blood Count 2.73 L 4.5-5.90 10^6/uL Hemoglobin 9.4 L 13.5-17.5 g/dL Hematocrit 27.0 #L 41.0-53.0 % Mean Corpuscular Volume 99.0 80.0-100.0 fL Mean Corpuscular Hemoglobin 34.3 H 28.0-32.0 pg Mean Corpuscular Hemoglobin Concent 34.7 32.0-36.0 g/dL Red Cell Distribution Width 13.2 11.8-14.3 % Platelet Count 268 140-450 10^3/uL Mean Platelet Volume 7.3 6.9-10.8 fL Neutrophils (%) (Auto) 75.6 37.0-80.0 % Lymphocytes (%) (Auto) 14.0 10.0-50.0 % Monocytes (%) (Auto) 9.0 0.0-12.0 % Eosinophils (%) (Auto) 0.6 0.0-7.0 % Basophils (%) (Auto) 0.8 0.0-2.0 % Neutrophils # (Auto) 10.1 H 1.6-8.6 10 ^3/uL Lymphocytes # (Auto) 1.9 0.4-5.4 10 ^3/uL Monocytes # (Auto) 1.2 0-1.3 10 ^3/uL Eosinophils # (Auto) 0.1 0-0.8 10 ^3/uL Basophils # (Auto) 0.1 0-0.2 10 ^3/uL Nucleated Red Blood Cells 0.0 % Prothrombin Time 11.7 9.3-11.8 sec Prothrombin Time INR 1.12 0.9-1.15 Activated Partial Thromboplast Time 26.2 24.5-34.5 SEC Sodium Level 139 136-145 mmol/L Potassium Level 4.2 3.5-5.1 mmol/L Chloride Level 106 98-107 mmol/L Carbon Dioxide Level 27 20-31 mmol/L Anion Gap 6 5-15 Blood Urea Nitrogen 14 9-23 mg/dL Creatinine 1.12 0.700-1.30 mg/dL Glomerular Filtration Rate Calc 73 >90 mL/min BUN/Creatinine Ratio 12.5 10.0-20.0 Serum Glucose 110 H 74-106 mg/dL Calcium Level 9.5 8.7-10.4 mg/dL Total Bilirubin 0.5 0.2-1.0 mg/dL Aspartate Amino Transferase (AST) 58 H 13-40 U/L Alanine Aminotransferase (ALT) 47 H 7-40 U/L Alkaline Phosphatase 65 46-116 U/L Total Protein 6.7 5.7-8.2 g/dL Albumin 4.2 3.2-4.8 g/dL Hepatitis B Surface Antigen Negative Negative Hepatitis C Antibody Reactive *A Negative Lactic Acid Level 1.4 0.4-2.0 mmol/L Creatine Kinase 383 H 46-171 U/L Urine Color Yellow Yellow Urine Clarity Clear Clear Urine pH 5.5 5.0-9.0 Urine Specific [place] 1.020 1.001-1.035 Urine Protein Trace H Negative Urine Ketones Negative Negative Urine Blood Negative Negative /uL Urine Nitrite Negative Negative Urine Bilirubin Negative Negative Urine Urobilinogen Normal Negative mg/dL Urine Leukocyte Esterase Negative Negative /uL Urine RBC <1 0 - 3 /hpf Urine Microscopic WBC 1 0-3 /HPF Urine Squamous Epithelial Cells Few <5 /hpf Urine Bacteria None seen None Seen /hpf Urine Hyaline Casts Few 0 - 2 /lpf Urine Mucus Few None Seen Urine Glucose Normal Normal mg/dL EXAM: CT CT AB PEL WO CON-NO ORAL OR IV HISTORY: assess for hematoma COMPARISON: None TECHNIQUE: Helical CT images of the abdomen and pelvis were performed without IV contrast. Sagittal and coronal reformatted images were obtained. This CT exam was performed using one or more of the following dose reduction techniques: Automated exposure control, adjustment of the mA and/or kv according to patient size, or the use of iterative reconstruction techniques. Radiation Dose: Abdomen/Pelvis: CTDIvol 6.34 mGy, DLP 388.31 mGy*cm. FINDINGS: CT abdomen: There is bilateral lower lobe scarring versus atelectasis. There are postoperative changes median sternotomy and aortic valve replacement. The heart is borderline enlarged. The liver measures 20 cm longitudinal. The noncontrast spleen, gallbladder, pancreas, kidneys, and adrenal glands are unremarkable. No abdominal aortic aneurysm. There are atherosclerotic calcifications of the abdominal aorta and major branches. There is a heterogeneo us hematoma involving the right rectus abdominus muscle measuring 21 cm longitudinal (images 50 2-89, series 2 ; image 54, series 602). CT pelvis: No abnormal bowel dilatation or free air. There is irregular fluid in the anterior pelvis, likely blood products. The appendix and urinary bladder are unremarkable. The prostate is mildly enlarged. There are surgical clips in the left inguinal region. There is moderate lumbar degenerative disc disease. There is slight retrolisthesis L5 on S1. There is [id number] osteoarthritis of the bilateral hips. There are thick calcifications along the posterior aspect of the right hip and ischium (images 90-97, series 2). There is spina bifida occulta of the sacrum. IMPRESSION: 1. Right rectus abdominus intramuscular hematoma measures up to 21 cm longitudinal. 2. Postoperative changes the heart, Borderline cardiomegaly, and extensive athe rosclerotic vascular disease in the abdomen and pelvis. 3. Mild prostatic enlargement. 4. Postoperative changes of the left inguinal region. 5. Thick heterotopic ossification along the posterior aspect of the right hip and ischium, likely due to old soft tissue injury Assessment Rectus sheath hematoma status post Lovenox injection. Recommend warm compresses to the area, binder, resume anticoagulation when H&H stabilizes. Advance diet. Plan/Recommendation Rectus sheath hematoma status post Lovenox injection. Recommend warm compresses to the area, binder, resume anticoagulation when H&H s tabilizes. Advance diet. Plan discussed with: Patient CORDELIA MILLER Jr., MD Apr 08, 2025 13:00
--- NOTE | 2025-04-08 14:30 | DVH ---
Exam: CT CT AB PEL WITH IV CON ONLY History: Rectus abdominis Hematoma eval for active bleed Comparison Study: None Contrast: Type of contrast: Omnipaque 300 Contrast injected: 100 mL Contrast wasted: 0 TECHNIQUE: A digital chief controller center image was obtained. During the uneventful, intravenous administration of c ontrast material, multislice data acquisition was obtained through the abdomen and pelvis. The data s et was subsequently reconstructed into axial images. Images were reviewed on a work station using a c ombination of axial and multiplanar using a variety of window levels and settings. Radiation Dose Information: CT Dose: CTDI volume is 6.65 mGy. Dose-length product is 435.04 mGy*cm FINDINGS: Lung Bases: Airspace disease and atelectasis in the right posterior costophrenic angle.. Normal hear t size. No pleural or pericardial effusion. Coronary artery calcifications. Liver: The liver is normal in size. No focal lesions. Normal hepatic vascular enhancement. Gallbladder and Biliary Tree: Unremarkable Spleen: Unremarkable Pancreas: The pancreas is normal in appearance without focal lesions or abnormal enhancement. Adrenal Glands: Unremarkable Kidneys: Kidneys demonstrate normal symmetric enhancement without focal lesions, calculi or hydroneph rosis. Bladder: Unremarkable Bowel: The stomach is grossly normal in appearance. Small bowel and colon are normal in caliber and d istribution. The appendix is not visualized; however, no secondary findings of acute appendicitis [place] ntified. Ascites: Absent Lymphadenopathy: No mesenteric, retroperitoneal or periportal lymphadenopathy. Abdominal Wall and Mesentery: Right-sided rectus sheath hematoma measuring 7.1 x 4.2 cm. Appears to be grade 1. (series 2 images 49- 86) Vasculature: The visualized abdominal aorta is normal in size and caliber. Abdominal and pelvic vess els demonstrate normal enhancement. Pelvic Organs: Unremarkable Musculoskeletal: No aggressive focal bony lesions, acute fractures or dislocation. Soft tissues: Unremarkable. IMPRESSION: 1. Right-sided rectus sheath hematoma Grade 1. Measures 19 x 7.1 x 4[address] scans at this medical facility are performed using dose modulation techniques as appropriat e to a performed exam including the following: Automated exposure control was utilized; adjustment of the MA and/or KV according to patient size; and use of iterative reconstruction technique.
--- NOTE | 2025-04-08 14:37 | DVHINCON2 ---
Date Seen: Apr 08, 2025 Referring Physician MD Noble Reason for Consultation Intra-abdominal hematoma, holding AC for AVR/AFib. Please evaluate need for AC History of Present Illness This is a pleasant 64-year-old man who presented to the emergency room with a chief complaint of right-sided neck bleed and abdominal pain. The patient underwent a recent right neck I&D procedure on 04/04/2025 secondary to an abscess he developed after a bug bite three months ago. He is on warfarin therapy given history of mechanical aortic valve replacement for which he was bridge to Lovenox SC for three days prior to intervention. Post I&D he developed bleeding to right neck area and a hematoma to the abdominal wall area where he received the Lovenox SC. Latest CT abd revealed an intramuscular hematoma measuring up to 21 cm longitudinal. Cardiology consulted for recommendations on AC therapy. The patient is cardiac asymptomatic. There was no twelve lead electrocardiogram on file. Admitted to [facility], no monitoring analyst in place. Follows up in the outpatient setting with Dr. Samuel. Last INR was 2.5 checked at [facility] was 10 days ago. Significant medical history includes open heart surgery for aortic valve replacement at [facility] in 2019 and on warfarin therapy, unspecified atrial fibrillation on amiodarone and digoxin therapy, nonischemic cardiomyopathy with LVEF <40%, hypertension, dyslipidemia, thyroid disease, tobacco/alcohol use. Of note, previous providers history of CABG and CAD which is not accurate. Past Medical History Past medical history reviewed. No other significant than mentioned above. Past Surgical History Mechanical aortic valve replacement, 2019 Right-sided neck abscess drainage, 04/04/2025 History of tracheostomy Family History: Patient reports no known family medical history. Family History Family history reviewed. Social History Admits to tobacco use, one pack of cigarettes every three days. Admits to alcohol use, 6-12 beers weekly. Denies the use of illicit drugs. Allergies: Coded Allergies: NO KNOWN ALLERGIES (Unverified , 11/13/19) Home Meds Active Scripts Bacitracin Base (Bacitracin) 500 Unit/Gm Oin, 500 UNIT TOP DAILY, #30 GM Prov:ARSENIO FRANCES PAC 11/17/23 Acetaminophen W/ Codeine (Tylenol W/Cod #3) 1 Tab Tb, 1 TAB PO Q6HP PRN, #20 TAB Prov:ARSENIO FRANCES PAC 11/17/23 Amoxicillin & Pot Clavulanate (AUGMENTIN TABLET) 875 Mg Tb, 875 MG PO BID for 10 Days, #20 TAB Prov:ARSENIO FRANCES PAC 11/17/23 Reported Medications Omeprazole (Prilosec Susp (For Gt)) 20 Mg Ss, 20 MG PO DAILY, ML 03/12/21 Losartan Potassium (Losartan Potassium) 50 Mg Tab, 1 TAB PO DAILY, #30 TAB 5 Refills 03/12/21 Amiodarone Hcl (Amiodarone Hcl) 200 Mg Tab, 1 TAB PO DAILY, #90 TAB 1 Refill 03/12/21 Amlodipine Besylate (NORVASC TABLET) 5 Mg Tb, 1 TAB PO DAILY, #30 TAB 5 Refills 03/12/21 Warfarin Sodium (Warfarin Sodium) 5 Mg Tab, 1 TAB PO DAILY, #90 TAB 1 Refill 03/12/21 Atorvastatin Calcium (ATORVASTATIN CALCIUM) 20 Mg Tab, 1 TAB PO HS, #30 TAB 5 Refills 03/12/21 Cholecalciferol (VITAMIN D3) 2,000 Unit Tab, 5000 UNIT OR DAILY, TAB 03/12/21 Digoxin (Digoxin) 125 Mcg Tab, 125 MCG PO DAILY, TAB 03/12/21 Home Meds Home medications reviewed. Current Medications Current Medications Medications (Trade) Dose Ordered Sig/Marcelo Route PRN Reason Start Time Stop Time Status Last Admin Lactated Ringer's 1,000 ml @ 60 mls/hr [id number] IV 04/07/25 15:45 04/07/25 16:04 Ceftriaxone Sodium 50 ml @ 100 mls/hr DAILY@09 IV 04/07/25 15:45 04/08/25 08:57 Acetaminophen/ Hydrocodone Bitart ([place] 10/325MG Tab) 1 tab Q6HP PRN PO MODERATE PAIN (4-6 PAIN SCALE) 04/07/25 17:15 04/08/25 08:59 Morphine Sulfate 1 mg Q1HP PRN IV SEVERE PAIN (7-10 PAIN SCALE) 04/07/25 17:15 04/07/25 17:16 DC Morphine Sulfate 2 mg Q1HP PRN IV SEVERE PAIN (7-10 PAIN SCALE) 04/07/25 17:15 04/08/25 13:42 Lactated Ringer's 1,000 ml @ 100 mls/hr Q10H IV 04/08/25 13:00 Review of Systems Constitutional: No symptom reported Ears, Nose, & Throat: No symptom reported Eyes: No symptom reported Neurological: No symptoms reported Pulmonary/Respiratory: No symptom reported Cardiovascular: No symptom reported Gastrointestinal: Abdominal hematoma Genitourinary: No symptom reported Musculoskeletal: Right-sided neck bleeding Skin: No symptom reported Psychiatric: No symptom reported Endocrine: No symptom reported Hemotologic/Lymphatic: No symptom reported Vital Signs Vital Signs Date Time Temp Pulse Resp B/P (MAP) Pulse Ox O2 Delivery O2 Flow Rate FiO2 04/08/25 13:42 80 18 122/67 04/08/25 09:00 97.9 94 97.9 04/08/25 08:00 Nasal Cannula* 2 28 Physical Exam General Appearance: Cooperative. Well developed. Well nourished. In no acute distress Head Exam: Normal inspection Neck Exam: Normal inspection. Non-tender. Normal alignment Pulmonary/Respiratory: Chest non-tender. Clear bilateral breath sounds Cardiovascular/Chest: Irregularly irregular rate and rhythm. Clicking sound present Peripheral Pulses: 2+ Radial (R). 2+ Radial (L). 2+ Pedal (R). 2+ Pedal (L) Abdominal Exam: Normal bowel sounds. Soft. Tender. Ankle Exam: Negative ankle edema Lower extremities: Negative lower extremity edema Neuro/Mental Status: A&O x4. Coherent Thoughts/Psych: Normal thought pattern. Appropriate mood and affect. Good martha gement and insight Appearance: In no acute distress Skin Exam: Large abdominal hematoma present. Right-sided neck hematoma. G eneralized paleness Labs/Diagnostic Data Labs Test 04/08/25 09:14 04/07/25 16:45 04/06/25 20:00 Range/Units White Blood Count 13.4 #H 4.4-10.8 10^3/uL Red Blood Count 2.73 L 4.5-5.90 10^6/uL Hemoglobin 9.4 L 13.5-17.5 g/dL Hematocrit 27.0 #L 41.0-53.0 % Mean Corpuscular Volume 99.0 80.0-100.0 fL Mean Corpuscular Hemoglobin 34.3 H 28.0-32.0 pg Mean Corpuscular Hemoglobin Concent 34.7 32.0-36.0 g/dL Red Cell Distribution Width 13.2 11.8-14.3 % Platelet Count 268 140-450 10^3/uL Mean Platelet Volume 7.3 6.9-10.8 fL Neutrophils (%) (Auto) 75.6 37.0-80.0 % Lymphocytes (%) (Auto) 14.0 10.0-50.0 % Monocytes (%) (Auto) 9.0 0.0-12.0 % Eosinophils (%) (Auto) 0.6 0.0-7.0 % Basophils (%) (Auto) 0.8 0.0-2.0 % Neutrophils # (Auto) 10.1 H 1.6-8.6 10 ^3/uL Lymphocytes # (Auto) 1.9 0.4-5.4 10 ^3/uL Monocytes # (Auto) 1.2 0-1.3 10 ^3/uL Eosinophils # (Auto) 0.1 0-0.8 10 ^3/uL Basophils # (Auto) 0.1 0-0.2 10 ^3/uL Nucleated Red Blood Cells 0.0 % Prothrombin Time 11.7 9.3-11.8 sec Prothrombin Time INR 1.12 0.9-1.15 Activated Partial Thromboplast Time 26.2 24.5-34.5 SEC Sodium Level 139 136-145 mmol/L Potassium Level 4.2 3.5-5.1 mmol/L Chloride Level 106 98-107 mmol/L Carbon Dioxide Level 27 20-31 mmol/L Anion Gap 6 5-15 Blood Urea Nitrogen 14 9-23 mg/dL Creatinine 1.12 0.700-1.30 mg/dL Glomerular Filtration Rate Calc 73 >90 mL/min BUN/Creatinine Ratio 12.5 10.0-20.0 Serum Glucose 110 H 74-106 mg/dL Calcium Level 9.5 8.7-10.4 mg/dL Total Bilirubin 0.5 0.2-1.0 mg/dL Aspartate Amino Transferase (AST) 58 H 13-40 U/L Alanine Aminotransferase (ALT) 47 H 7-40 U/L Alkaline Phosphatase 65 46-116 U/L Total Protein 6.7 5.7-8.2 g/dL Albumin 4.2 3.2-4.8 g/dL Hepatitis B Surface Antigen Negative Negative Hepatitis C Antibody Reactive *A Negative Lactic Acid Level 1.4 0.4-2.0 mmol/L Creatine Kinase 383 H 46-171 U/L Urine Color Yellow Yellow Urine Clarity Clear Clear Urine pH 5.5 5.0-9.0 Urine Specific [place] 1.020 1.001-1.035 Urine Protein Trace H Negative Urine Ketones Negative Negative Urine Blood Negative Negative /uL Urine Nitrite Negative Negative Urine Bilirubin Negative Negative Urine Urobilinogen Normal Negative mg/dL Urine Leukocyte Esterase Negative Negative /uL Urine RBC <1 0 - 3 /hpf Urine Microscopic WBC 1 0-3 /HPF Urine Squamous Epithelial Cells Few <5 /hpf Urine Bacteria None seen None Seen /hpf Urine Hyaline Casts Few 0 - 2 /lpf Urine Mucus Few None Seen Urine Glucose Normal Normal mg/dL Assessment Intramuscular abdominal hematoma Status post right-sided neck abscess drainage with bleed Status post mechanical aortic valve replacement (on Warfarin) Unspecified atrial fibrillation (on digoxin/amiodarone therapy) Subtherapeutic INR levels Nonischemic cardiomyopathy Distention Dyslipidemia Thyroid disease Acute anemia Plan/Recommendation (Dr. Samuel) Case discussed in full detail with Dr. Samuel. The patient status post mechanical aortic valve replacement on warfarin therapy underwent bridging with Lovenox therapy then developing an abdominal hematoma and right sided neck bleed post I&D procedure. Now presents with acute anemia and has been considered for possible surgical intervention. Recommendations are to hold off on ALL anticoagulation therapy until no surgical interventions are further needed and to resume warfarin therapy only post interventional procedures within 24-48 hrs if low-post procedural bleeding risk. Target INR level is generally 2.0 to 3.0. Monitor H&H closely and transfuse as necessary. Consider upgrade to Telemetry unit given extensive cardiac history. Kindly call if in need of further recommendations or need for clarification. Thank you for allowing us to participate in this patient's care. This medical document was created using an electronic medical record system with voice recognition software and computerized dictation system. Although this document has been carefully reviewed, there might still be some phonetic and typographical errors. Occasional wrong-word or ``sound-alike substitutions may have occurred due to the inherent limitations of voice recognition software. These areas are purely typographical due to imperfections of the software programs and do not reflect any compromise in the patient's medical care. Please read the chart carefully and recognize, using context, where these substitutions have occurred. Plan discussed with: Patient, Other NYHA Physical activity limitations: NA Date of Service: Apr 08, 2025 Billing Provider: LOVE BROWN Cardiology Common Codes: [id number] INP/OBS CARE (High) LOVE BROWN Apr 08, 2025 14:37
--- NOTE | 2025-04-08 16:47 | DVHPNRES ---
Progress Note Date Seen: Apr 08, 2025 Resident Creating Document: MALUMASTER RESIDENT Has the PT tested + for MRSA If YES, has PT been informed?: No Medical Necessity Reason Pt with a Central, PICC or Fol: No Subjective Review of Systems Patient is a 64 year old male with past medical history of atrial fibrillation, CAD, hypertension, [place], mechanical aortic valve replacement. He was noted to be bleeding from a previous I&D site on his right side of the neck. His sister clarified that it was an incision site (post removal of a nodule) right side of the neck. At the same time he started having lower abdominal pain at the site of subcutaneous Lovenox injection. He describes pain as 10 on 10, that increases with breathing; without any relieving factors The pain started in the right lower quadrant, eventually spreading to the whole abdomen. Next day he noticed a purple bruise on the right side of the lower abdomen. He presented to ED with bleeding from the incision site on the neck. Patient denied any syncope, chest pain, N/V/D, SOB, dizziness, or fever. CT done in ED shows right rectus abdominus hematoma. Past surgical history: CABG, artificial aortic valve replacement, tracheostomy Personal history: Smokes 1/3 pack daily, drinks 6-12 beers weekly. Denies recreational drug use. Lives at home. 04/07/25: Complained of pain in abdomen. He reported bleeding from the incision site last night. 04/08/25: Patient examined on bedside. clinical medical assistant clarified that he was on warfarin before the removal of the nodule on the neck. He was discontinued on warfarin and started on Lovenox and was planned to continue on the medication till his colonoscopy is done next week. Today, he complains of abdominal pain 8/10, controlled with medications. Surgery, Cardiology and vascular surgery consulted. He is using a binder on his abdomen that has also helped with pain. Ordered CT contrast to see if the hematoma is actively bleeding. ROS: Constitutional: Denies weight loss, fever and chills. HEENT: Denies changes in vision and hearing. Respiratory: Denies shortness of breath and cough Cardiovascular: Mild chest discomfort. GI: Complains of severe abdominal pain. Denies nausea, vomiting and diarrhea. : Denies dysuria and urinary frequency. Musculoskeletal: Denies myalgias and joint pain Skin: Multiple bruises due to blood thinners. Neurological: Denies dizziness, headache, vision or hearing problems Objective vital signs Vital Sign Date Time Temp Pulse Resp B/P (MAP) Pulse Ox O2 Delivery O2 Flow Rate FiO2 04/08/25 14:12 68 18 128/75 04/08/25 13:00 97.3 92 97.3 04/08/25 08:00 Nasal Cannula* 2 28 Total Intake and Output 04/07/25 04/07/25 04/08/25 15:00 23:00 07:00 Intake Total 340 ml 1100 ml Output Total 400 ml 600 ml Balance -60 ml 500 ml medications Current Medications Medications Dose Ordered Sig/Marcelo Route Start Time Stop Time Status Last Admin Dose Admin Amiodarone HCl 200 mg DAILY PO 04/07/25 10:00 04/08/25 08:58 200 MG Amlodipine Besylate 5 mg DAILY PO 04/07/25 10:00 04/08/25 09:00 5 MG Atorvastatin Calcium 20 mg HS PO 04/06/25 22:00 04/07/25 20:58 20 MG Digoxin 0.125 mg DAILY PO 04/07/25 10:00 04/08/25 08:59 0.125 MG Losartan Potassium 50 mg DAILY PO 04/07/25 10:00 04/08/25 09:00 50 MG Cholecalciferol 5,000 unit DAILY PO 04/07/25 10:00 04/08/25 08:57 5,000 UNIT Lactated Ringer's 1,000 ml @ 60 mls/hr [id number] IV 04/07/25 15:45 04/07/25 16:04 60 MLS/HR Ceftriaxone Sodium 50 ml @ 100 mls/hr DAILY@09 IV 04/07/25 15:45 04/08/25 08:57 100 MLS/HR Acetaminophen/ Hydrocodone Bitart 1 tab Q6HP PRN PO 04/07/25 17:15 04/08/25 08:59 1 TAB Morphine Sulfate 2 mg Q1HP PRN IV 04/07/25 17:15 04/08/25 13:42 2 MG Lactated Ringer's 1,000 ml @ 100 mls/hr Q10H IV 04/08/25 13:00 Examination General: Patient alert and oriented in person, place and time. Patient following commands. HEENT: Neck wound dressing looks dry. Normocephalic, atraumatic. Respiratory/pulmonary: Clear lungs bilaterally, no associated crackles or wheezes. Cardiovascular: Midline scar present on chest. Normal heart sounds S1 and S2 with no associated murmurs Abdomen: Binder in place. Abdominal swelling, tenderess & guarding. Midline scar present in the middle quadrant. Bilateral large hematomas present in the lower abdomen. Patient is unable to tolerate abdominal examination. Extremities: There is no peripheral edema present at the lower extremities. Peripheral Pulses: 3+ Radial (R). 3+ Radial (L). 3+ Dorsalis pedis (R). 3+ Dorsalis pedis(L) Skin: No rashes or pruritus, there is no sacral edema present at this time. Neurological: Intact cranial nerves with no focal neurologic deficits laboratory and microbiology Laboratory Tests 04/08/25 09:14 Test 04/08/25 09:14 Range/Units Serum Glucose 110 H 74-106 mg/dL Problem List/Assessment/Plan Problem List/Assessment/Plan 1. B/L rectus abdominis hematomas - CT abdomen shows right rectus abdominis intramuscular hematoma measuring up to 21 cm longitudinal. - Surgery consulted; Advised repeat CT Abdomen tomorrow, NPO after midnight, and consult vascular surgery. - CK increased.Continue Ringer's lactate. - Pain managed with Acetamenophen, [place], Morphine as needed. - Vascular surgery recommended warm compresses to the area, binder, resume anticoagulation when H&H stabilizes. - CT w/contrast shows right-sided rectus sheath hematoma Grade 1. Measures 19 x 7.1 x 4.2 cm. - Hold anticoagulants. 2. Abdominal wall infection, rule out 3. Leukocytosis - Labs show neutrophilia. - Will rule out abdominal wall infection in rapidly growing hematoma with abdominal guarding. 4. Bleeding neck wound - Continuous bleeding from I&D drainage site. Skin/soft tissue infection treated with I&D. 5. Anemia due to acute blood loss - Hb 9.9 (down from 12.2 on 04/06) - Monitor CBC 6. Hypertension - Continue losartan 50 mg p.o. daily - Continue amlodipine 5 mg p.o. daily 7. AFib 8. Hx of aortic valve replacement - Continue amiodarone 200 mg p.o. daily - Cardiology advised to continue holding off warfarin. 9. Hyperlipidemia - Continue atorvastatin 20 mg p.o. daily Goals of cares discussed with patient at bedside for more than 25 minutes Full code Plan discussed with Dr. Dickey Plan discussed with: Patient My Orders My Orders Orders - MASTER TORIBIO Procedure Category Date Status Time Consult CONS 04/07/25 Transmitted Vascular/Endovascular 19:03 Ct Ab Pel With Iv Con CT 04/08/25 Resulted Only 12:45 Lactated Ringer's PHA 04/08/25 In Process 13:00 Creatine Kinase LAB 04/09/25 Verified 04:00 Date of Service: Apr 08, 2025 Billing Provider: GISSEL CHOW MD Common Visit Codes: [id number] INP/OBS CARE(HIGH) MASTER TORIBIO Apr 08, 2025 16:47 GISSEL CHOW MD Apr 15, 2025 02:20
[2025-04-09] VITALS (7 sets, daily range): BP systolic 109–147; BP diastolic 59–80; PULSE 56–68; RESP 18–19; TEMP 97.8–98.6; O2SAT 90–100
[2025-04-09 05:56] LABS: Hematocrit 25.7 % (41.0-53.0); Hemoglobin 8.8 g/dL (13.5-17.5); Mean Corpuscular Hemoglobin 33.9 pg (28.0-32.0); Mean Corpuscular Volume 99.2 fL (80.0-100.0); Nucleated Red Blood Cells % 0.0 %
[2025-04-09 06:31] LABS: Chloride 103 mmol/L (98-107); Potassium 4.5 mmol/L (3.5-5.1); Sodium 136 mmol/L (136-145)
[2025-04-09 06:32] LABS: Anion Gap 5 (5-15); Calcium 8.9 mg/dL (8.7-10.4); Carbon Dioxide 28 mmol/L (20-31)
[2025-04-09 06:37] LABS: BUN/Creatinine Ratio 12.7 (10.0-20.0); Blood Urea Nitrogen 14 mg/dL (9-23); Glucose 98 mg/dL (74-106)
[2025-04-09 06:40] LABS: Creatine Kinase IFCC 531 U/L (46-171)
--- NOTE | 2025-04-09 08:57 | DVHPN2 ---
Progress Note Date Seen: Apr 09, 2025 Has the PT tested + for MRSA If YES, has PT been informed?: No Medical Necessity Reason Pt with a Central, PICC or Fol: No Objective vital signs Vital Sign Date Time Temp Pulse Resp B/P (MAP) Pulse Ox O2 Delivery O2 Flow Rate FiO2 04/09/25 08:36 98.6 58 18 109/59 (76) 94 98.6 04/08/25 20:00 Nasal Cannula* 2 28 Total Intake and Output 04/08/25 04/08/25 04/09/25 14:59 22:59 06:59 Intake Total 1550 ml 850 ml Output Total 400 ml Balance 1550 ml 450 ml medications Current Medications Medications Dose Ordered Sig/Marcelo Route Start Time Stop Time Status Last Admin Dose Admin Amiodarone HCl 200 mg DAILY PO 04/07/25 10:00 04/09/25 08:22 200 MG Amlodipine Besylate 5 mg DAILY PO 04/07/25 10:00 04/09/25 08:22 5 MG Atorvastatin Calcium 20 mg HS PO 04/06/25 22:00 04/08/25 21:08 20 MG Digoxin 0.125 mg DAILY PO 04/07/25 10:00 04/09/25 08:23 0.125 MG Losartan Potassium 50 mg DAILY PO 04/07/25 10:00 04/09/25 08:22 50 MG Cholecalciferol 5,000 unit DAILY PO 04/07/25 10:00 04/09/25 08:21 5,000 UNIT Ceftriaxone Sodium 50 ml @ 100 mls/hr DAILY@09 IV 04/07/25 15:45 04/09/25 08:23 100 MLS/HR Acetaminophen/ Hydrocodone Bitart 1 tab Q6HP PRN PO 04/07/25 17:15 04/09/25 02:51 1 TAB Morphine Sulfate 2 mg Q1HP PRN IV 04/07/25 17:15 04/09/25 08:24 2 MG Lactated Ringer's 1,000 ml @ 100 mls/hr Q10H IV 04/08/25 13:00 04/09/25 00:09 100 MLS/HR laboratory and microbiology Laboratory Tests 04/09/25 04:44 Test 04/09/25 04:44 Range/Units Serum Glucose 98 74-106 mg/dL Problem List/Assessment/Plan Problem List/Assessment/Plan AFEBRILE VSS ABD SOFT LEFT LOWER QUADRANT HEMATOMA RESOLVED RLQ DECREASED BY HALF CONTINUE CLOSE OBSERVATION NO INDICATION FOR SURGERY PT EVAL CONTINUE ABD BINDER NURSE AT BEDSIDE Plan discussed with: Patient Dietary Evaluation Review Comments: 1. Promote wound healing with high protein and high caloric diet supplemented with [place] bid 2. educated on a CCHO-60 diet for better controlled serum glucose Expected Outcomes/Goals: heealed wounds, KELL FITZGERALD MD Apr 09, 2025 08:57
--- NOTE | 2025-04-09 09:48 | DVHPNRES ---
Progress Note Date Seen: Apr 09, 2025 Resident Creating Document: MASTER TORIBIO RESIDENT Has the PT tested + for MRSA If YES, has PT been informed?: No Medical Necessity Reason Pt with a Central, PICC or Fol: No Subjective Review of Systems Patient is a 64 year old male with past medical history of atrial fibrillation, CAD, hypertension, [place], mechanical aortic valve replacement. He was noted to be bleeding from a previous I&D site on his right side of the neck. His sister clarified that it was an incision site (post removal of a nodule) right side of the neck. At the same time he started having lower abdominal pain at the site of subcutaneous Lovenox injection. He describes pain as 10 on 10, that increases with breathing; without any relieving factors The pain started in the right lower quadrant, eventually spreading to the whole abdomen. Next day he noticed a purple bruise on the right side of the lower abdomen. He presented to ED with bleeding from the incision site on the neck. Patient denied any syncope, chest pain, N/V/D, SOB, dizziness, or fever. CT done in ED shows right rectus abdominus hematoma. Past surgical history: CABG, artificial aortic valve replacement, tracheostomy Personal history: Smokes 1/3 pack daily, drinks 6-12 beers weekly. Denies recreational drug use. Lives at home. 04/07/25: Complained of pain in abdomen. He reported bleeding from the incision site last night. 04/08/25: His sister clarified that he was on warfarin before the removal of the nodule on the neck. He was discontinued on warfarin and started on Lovenox and was planned to continue on the medication till his colonoscopy is done next week. Today, he complains of abdominal pain 8/10, controlled with medications. Surgery, Cardiology and vascular surgery consulted. He is using a binder on his abdomen that has also helped with pain. Ordered CT contrast to see if the hematoma is actively bleeding. 04/09/25: Patient examined on bedside. Compains of pain control with pain medications. Pain 8/10 without pain medications. He has been bed bound, non- ambulatory. No new complains. His CK is running high, will monitor. We will keep holding off the atorvastatin and monitor his hematoma for progression in context of hemoglobin going down to 8.8 g/dl & CK increasing. ROS: Constitutional: Denies weight loss, fever and chills. HEENT: Denies changes in vision and hearing. Respiratory: Denies shortness of breath and cough Cardiovascular: Mild chest discomfort. GI: Complains of abdominal pain. Denies nausea, vomiting and diarrhea. : Denies dysuria and urinary frequency. Musculoskeletal: Denies myalgias and joint pain Skin: Multiple bruises due to blood thinners. Neurological: Denies dizziness, headache, vision or hearing problems Objective vital signs Vital Sign Date Time Temp Pulse Resp B/P (MAP) Pulse Ox O2 Delivery O2 Flow Rate FiO2 04/09/25 08:36 98.6 58 18 109/59 (76) 94 98.6 04/08/25 20:00 Nasal Cannula* 2 28 Total Intake and Output 04/08/25 04/08/25 04/09/25 15:00 23:00 07:00 Intake Total 1550 ml 850 ml Output Total 400 ml Balance 1550 ml 450 ml medications Current Medications Medications Dose Ordered Sig/Marcelo Route Start Time Stop Time Status Last Admin Dose Admin Amiodarone HCl 200 mg DAILY PO 04/07/25 10:00 04/09/25 08:22 200 MG Amlodipine Besylate 5 mg DAILY PO 04/07/25 10:00 04/09/25 08:22 5 MG Atorvastatin Calcium 20 mg HS PO 04/06/25 22:00 04/08/25 21:08 20 MG Digoxin 0.125 mg DAILY PO 04/07/25 10:00 04/09/25 08:23 0.125 MG Losartan Potassium 50 mg DAILY PO 04/07/25 10:00 04/09/25 08:22 50 MG Cholecalciferol 5,000 unit DAILY PO 04/07/25 10:00 04/09/25 08:21 5,000 UNIT Ceftriaxone Sodium 50 ml @ 100 mls/hr DAILY@09 IV 04/07/25 15:45 04/09/25 08:23 100 MLS/HR Acetaminophen/ Hydrocodone Bitart 1 tab Q6HP PRN PO 04/07/25 17:15 04/09/25 02:51 1 TAB Morphine Sulfate 2 mg Q1HP PRN IV 04/07/25 17:15 04/09/25 08:24 2 MG Lactated Ringer's 1,000 ml @ 100 mls/hr Q10H IV 04/08/25 13:00 04/09/25 00:09 100 MLS/HR Examination General: Patient alert and oriented in person, place and time. Patient following commands. HEENT: Neck wound dressing looks dry. Normocephalic, atraumatic. Respiratory/pulmonary: Clear lungs bilaterally, no associated crackles or wheezes. Cardiovascular: Midline scar present on chest. Normal heart sounds S1 and S2 with no associated murmurs Abdomen: Binder in place. The hematoma is getting darker in color with black- blue color on inspection. Abdominal swelling, tenderess & guarding. Midline scar present in the middle quadrant. Bilateral large hematomas present in the lower abdomen. Exquisite tenderness, guarding present on exam. Extremities: There is no peripheral edema present at the lower extremities. Skin: No rashes or pruritus, there is no sacral edema present at this time. Neurological: Intact cranial nerves with no focal neurologic deficits laboratory and microbiology Laboratory Tests 04/09/25 04:44 Test 04/09/25 04:44 Range/Units Serum Glucose 98 74-106 mg/dL Problem List/Assessment/Plan Problem List/Assessment/Plan 1. B/L rectus abdominis hematomas - CT abdomen shows right rectus abdominis intramuscular hematoma measuring up to 21 cm longitudinal. - Surgery consulted; Advised repeat CT Abdomen tomorrow, NPO after midnight, and consult vascular surgery. - CK increased.Continue Ringer's lactate. - Pain managed with Acetamenophen, [place], Morphine as needed. - Vascular surgery recommended warm compresses to the area, binder, resume anticoagulation when H&H stabilizes. - CT w/contrast shows right-sided rectus sheath hematoma Grade 1. Measures 19 x 7.1 x 4.2 cm. - Hold anticoagulants. Holding statins. - CK 531, Hb 8.8. Will repeat labs and continue to monitor. Surgery advised [facility] to monitor hematoma. 2. Abdominal wall infection, rule out 3. Leukocytosis - Labs show neutrophilia. - Will rule out abdominal wall infection in rapidly growing hematoma with abdominal guarding. - Continue Ceftriaxone, 4. Bleeding neck wound - Continuous bleeding from I&D drainage site. Skin/soft tissue infection treated with I&D. 5. Anemia due to acute blood loss - Hb 8.8 (down from 12.2 on 04/06) - Monitor CBC 6. Hypertension - Continue losartan 50 mg p.o. daily - Continue amlodipine 5 mg p.o. daily 7. AFib 8. Hx of aortic valve replacement - Continue amiodarone 200 mg p.o. daily - Cardiology advised to continue holding off all anticoagulants until H&H stabilized. - Coagulation profile normalized 9. Hyperlipidemia - Continue atorvastatin 20 mg p.o. daily Goals of cares discussed with patient at bedside for more than 25 minutes Full code Plan discussed with Dr. Dickey Plan discussed with: Patient My Orders My Orders Orders - MASTER TORIBIO Procedure Category Date Status Time Ct Ab Pel With Iv Con CT 04/08/25 Resulted Only 12:45 Lactated Ringer's PHA 04/08/25 In Process 13:00 PTPTT LAB 04/09/25 Logged 09:07 Dietary Evaluation Review Comments: 1. Promote wound healing with high protein and high caloric diet supplemented with Ronn bid 2. educated on a CCHO-60 diet for better controlled serum glucose Expected Outcomes/Goals: heealed wounds, Date of Service: Apr 09, 2025 Billing Provider: GISSEL CHOW MD Common Visit Codes: [id number] INP/OBS CARE(HIGH) MASTER TORIBIO RESIDENT Apr 09, 2025 09:48 GISSEL CHOW MD Apr 15, 2025 02:26
[2025-04-09 11:45] LABS: INR 1.08 (0.9-1.15); Partial Thromboplastin Time 26.3 SEC (24.5-34.5); Prothrombin Time 11.4 sec (9.3-11.8)
[2025-04-09] MEDS: MORPHINE SULFATE INJ 2 MG/ml SYRG IV PRN (13:11)
[2025-04-09 15:08] LABS: Hematocrit 27.2 % (41.0-53.0); Hemoglobin 9.1 g/dL (13.5-17.5)
--- NOTE | 2025-04-09 15:21 | DVH ---
Technique: Real-time ultrasound imaging of the abdomen was performed with grayscale and color Doppler . Indication: eval hematoma collection in the abdomen Comparison: 04/08/2025 Findings: There is a complex collection in the region of the right rectus sheath corresponding to the previous CT abnormality measuring approximately 16.5 x 3.6 x 7.6 cm, likely rectus sheath hematoma. This has m ixed echogenicity suggesting hemorrhagic products of varying age. There is some internal foci of vasc ularity which could represent the right inferior epigastric vessel however active bleeding can not be ruled out. Correlate clinically and with surgical consultation for further management. Impression: As above
[2025-04-09] MEDS: ENOXAPARIN SOD 100 MG/1 ML SYRINGE SC ONE (18:24)
[2025-04-10 01:00] VITALS: BP 118/69; PULSE 59; RESP 18; TEMP 97.6; O2SAT 95
[2025-04-10 05:00] VITALS: BP 109/70; PULSE 72; RESP 18; TEMP 97.6; O2SAT 94
[2025-04-10 06:29] LABS: Hematocrit 27.4 % (41.0-53.0); Hemoglobin 9.4 g/dL (13.5-17.5); Mean Corpuscular Hemoglobin 34.3 pg (28.0-32.0); Mean Corpuscular Volume 100.3 fL (80.0-100.0); Nucleated Red Blood Cells % 0.1 %
[2025-04-10 06:38] LABS: Alkaline Phosphatase 74 U/L (46-116); Anion Gap 8 (5-15); BUN/Creatinine Ratio 14.4 (10.0-20.0); Blood Urea Nitrogen 17 mg/dL (9-23); Calcium 9.4 mg/dL (8.7-10.4); Carbon Dioxide 28 mmol/L (20-31); Chloride 101 mmol/L (98-107); Potassium 3.9 mmol/L (3.5-5.1); Sodium 137 mmol/L (136-145); Total Protein 6.8 g/dL (5.7-8.2)
[2025-04-10 06:39] LABS: Alanine Aminotransferase 49 U/L (7-40); Albumin 4.2 g/dL (3.2-4.8); Bilirubin, Total 0.6 mg/dL (0.2-1.0); Creatine Kinase IFCC 417 U/L (46-171); Glucose 112 mg/dL (74-106)
[2025-04-10 08:00] VITALS: PULSE 61; RESP 16; O2SAT 92
[2025-04-10] MEDS: ENOXAPARIN SOD 100 MG/1 ML SYRINGE SC SCH (08:50)
[2025-04-10 09:00] VITALS: BP 128/75; PULSE 61; RESP 16; TEMP 97.4; O2SAT 92
--- NOTE | 2025-04-10 09:20 | DVH ---
Exam: US ABDOMEN LIMITED Clinical History: Interval change of Abdominal hematoma Comparison: US ABDOMEN LIMITED on DOS: 04/09/25 Technique: Targeted sonographic evaluation of the soft tissues of the lower abdomen was obtained utilizing bess scale and color Doppler imaging. Findings/Impression: Encapsulated hypoechoic structure in the lower abdomen measuring approximately 10.3 x 3.3 x 7.5 cm. T his likely corresponds to rectus sheath hematoma seen on CT dated 04/08/2025 and does not appear sign ificantly changed.
--- NOTE | 2025-04-10 11:18 | DVHPN2 ---
Progress Note Date Seen: Apr 10, 2025 Has the PT tested + for MRSA If YES, has PT been informed?: No Medical Necessity Reason Pt with a Central, PICC or Fol: No Objective vital signs Vital Sign Date Time Temp Pulse Resp B/P (MAP) Pulse Ox O2 Delivery O2 Flow Rate FiO2 04/10/25 09:32 128/75 04/10/25 09:32 61 04/10/25 09:00 97.4 16 92 97.4 04/10/25 08:00 Nasal Cannula* 2 28 Total Intake and Output 04/09/25 04/09/25 04/10/25 15:00 23:00 07:00 Intake Total 250 ml 400 ml 1300 ml Output Total 350 ml 900 ml Balance 250 ml 50 ml 400 ml medications Current Medications Medications Dose Ordered Sig/Marcelo Route Start Time Stop Time Status Last Admin Dose Admin Amiodarone HCl 200 mg DAILY PO 04/07/25 10:00 04/10/25 09:31 200 MG Amlodipine Besylate 5 mg DAILY PO 04/07/25 10:00 04/10/25 09:32 5 MG Digoxin 0.125 mg DAILY PO 04/07/25 10:00 04/10/25 09:32 0.125 MG Losartan Potassium 50 mg DAILY PO 04/07/25 10:00 04/10/25 09:32 50 MG Cholecalciferol 5,000 unit DAILY PO 04/07/25 10:00 04/10/25 09:31 5,000 UNIT Ceftriaxone Sodium 50 ml @ 100 mls/hr DAILY@09 IV 04/07/25 15:45 04/10/25 08:51 100 MLS/HR Acetaminophen/ Hydrocodone Bitart 1 tab Q6HP PRN PO 04/07/25 17:15 04/09/25 23:28 1 TAB Lactated Ringer's 1,000 ml @ 100 mls/hr Q10H IV 04/08/25 13:00 04/09/25 17:20 100 MLS/HR Morphine Sulfate 2 mg Q6HPRN PRN IV 04/09/25 10:00 04/10/25 04:38 2 MG Enoxaparin Sodium 70 mg Q12HR SC 04/10/25 08:00 04/10/25 08:50 70 MG Warfarin Sodium -Hazardous Drug -DO NOT CRUSH OR ... PER PHARMACY PO 04/09/25 16:30 laboratory and microbiology Laboratory Tests 04/10/25 05:10 Test 04/10/25 05:10 Range/Units Serum Glucose 112 H 74-106 mg/dL Problem List/Assessment/Plan Problem List/Assessment/Plan AFEBRILE VSS ABD SOFT LEFT LOWER QUADRANT HEMATOMA RESOLVED RLQ HEMATOMA RESOLVING CONTINUE CLOSE OBSERVATION NO INDICATION FOR SURGERY PT EVAL CONTINUE ABD BINDER NURSE AT BEDSIDE CLEARED FOR DISCHARGE Plan discussed with: Patient Dietary Evaluation Review Comments: 1. Promote wound healing with high protein and high caloric diet supplemented with Ronn bid 2. educated on a CCHO-60 diet for better controlled serum glucose Expected Outcomes/Goals: heealed wounds, KELL FITZGERALD MD Apr 10, 2025 11:18
[2025-04-10 12:33] VITALS: BP 114/68; PULSE 66; RESP 16; TEMP 97.8; O2SAT 91
[2025-04-10] MEDS ORDERED: WARF-112 PO (13:07)
[2025-04-10 14:33] VITALS: BP 128/75; PULSE 66; RESP 18; TEMP 36.6; O2SAT 92
[2025-04-10] MEDS ORDERED: WARFARIN SODIUM 2 MG TAB PO ONE (17:43)
== END 2025-04-10 14:53 | disposition home or self-care (01) | DRG 317 ==
LOC: ER 13:51 → OVERFLOW 20:34 → CENTRAL 22:37
PROVIDERS: ADMIT Student in an Organized Health Care Education/Training Program; ATTEND Internal Medicine
PROC: 0JQ40ZZ Repair Right Neck Subcutaneous Tissue and Fascia, Open Approach (ICD-10-PCS; principal; 2025-04-06)
DX: M79.81 Nontraumatic hematoma of soft tissue (principal); J96.01 Acute respiratory failure with hypoxia; D68.9 Coagulation defect, unspecified; L76.22 Postprocedural hemorrhage of skin and subcutaneous tissue following other procedure; I42.8 Other cardiomyopathies; D62 Acute posthemorrhagic anemia; D72.829 Elevated white blood cell count, unspecified; T45.515A Adverse effect of anticoagulants, initial encounter; L08.89 Other specified local infections of the skin and subcutaneous tissue; Z95.2 Presence of prosthetic heart valve; I10 Essential (primary) hypertension; E78.5 Hyperlipidemia, unspecified; I48.91 Unspecified atrial fibrillation; I25.10 Atherosclerotic heart disease of native coronary artery without angina pectoris; F17.210 Nicotine dependence, cigarettes, uncomplicated; E07.9 Disorder of thyroid, unspecified; Z95.1 Presence of aortocoronary bypass graft; Z79.01 Long term (current) use of anticoagulants; I25.2 Old myocardial infarction; X58.XXXA Exposure to other specified factors, initial encounter; Y93.89 Activity, other specified; Y92.89 Other specified places as the place of occurrence of the external cause; Y99.8 Other external cause status; Y83.8 Other surgical procedures as the cause of abnormal reaction of the patient, or of later complication, without mention of misadventure at the time of the procedure
CPT/HCPCS: 12001; 36415; 74176; 74177; 76705; 80048; 80053; 81001; 82550; 83605; 85014; 85018; 85025; 85610; 85730; 86803; 86850; 86900; 86901; 87340; 96361; 96374; 97110; 97116; 97163; 97530; G0378